=== PATIENT | female | born 1945 | race Caucasian/White ===

== ENCOUNTER → 2017-09-16 | Day surgery (SDC) | payer MEDICARE ==
[2017-09-15 08:00] LABS: BASOPHILS # (AUTO) 0.1 (0.0-0.1); BASOPHILS % 1.1 % (0.0-1.0); EOSINOPHILS # (AUTO) 0.3 (0.0-0.4); HEMATOCRIT 41.8 % (34.2-44.1); HEMOGLOBIN 13.8 g/dL (12.0-16.0); LYMPHOCYTES # (AUTO) 2.6 (1.0-3.2); LYMPHOCYTES % 41.4 % (18.0-39.1); MEAN CORPUSCULAR HEMOGLOBIN 30.9 pg (28-32); MEAN CORPUSCULAR VOLUME 93.5 fL (81-99); MONOCYTES # (AUTO) 0.7 (0.2-0.8); MONOCYTES % 11.1 % (4.4-11.3); NEUTROPHILS # (AUTO) 2.6 (2.1-6.9); NEUTROPHILS % 42.1 % (38.7-80.0); PLATELET COUNT 227 x10e3/uL (140-360); RED BLOOD COUNT 4.47 x10e6/uL (3.6-5.1); RED CELL DISTRIBUTION WIDTH 13.7 % (11.7-14.4)
[2017-09-15 08:21] LABS: ANION GAP 10.4 mmol/L (8-16); BLOOD UREA NITROGEN 16 mg/dL (7-26); BUN/CREATININE RATIO 18 (6-25); CALCIUM 9.1 mg/dL (8.4-10.2); CARBON DIOXIDE 26 mmol/L (22-29); CHLORIDE 109 mmol/L (98-107); CREATININE, SERUM 0.88 mg/dL (0.57-1.11); EST GLOMERULAR FILTRATION RATE > 60 ML/MIN (60-); GLUCOSE 110 mg/dL (74-118); POTASSIUM 4.4 mmol/L (3.5-5.1); SODIUM 141 mmol/L (136-145)
--- NOTE | 2017-09-15 08:33 | Diagnostic Imaging Report ---
PROCEDURE:CHEST 2 VIEWS TECHNIQUE:PA and lateral chest INDICATION:Preoperative evaluation for colonoscopy/EGD. COMPARISON:Patients [facility], , CHEST 2 VIEWS, 06/07/2015, 8:23. FINDINGS: Mild hyperinflation. Lungs otherwise clear and symmetrically inflated. No pleural effusions. Normal heart size and mediastinal contour. Intact skeleton with mild degenerative disc disease at the thoracolumbar spine. Cholecystectomy clips. CONCLUSION: 1. No acute abnormality or interval change from May 2015. 2. Mild hyperinflation may reflect air trapping from COPD or large inspiration effort. Dictated by: Jose Lynn M.D. on 09/15/2017 at 8:40 Electronically approved by: Jose Lynn M.D. on 09/15/2017 at 8:40
[~2017-09-16] MED LIST: ADVIL100 M2 PO; ADVIL200 MG PO; ALEVE220 M1 PO; COZAAR25 MG PO; FENTANYL CITRATE/PF 100MCG/2 ML INJ ONE; GABAPENTIN PO; KETOROLAC TROME10 MG PO; MIDAZOLAM HCL 2 MG/2 ML VIAL ONE; NAPROXEN250 MG PO; NEXIUM PO; NEXIUM40 MG PO; PREVACID15 MG PO; PROPOFOL IV EMULSION 10 MG/ML 20 ML VIAL ONE; RANITIDINE PO; TYLENOL PO
== END | disposition home or self-care (01) ==
LOC: OR 09:32
PROVIDERS: ATTEND Surgery
DX: K29.70 Gastritis, unspecified, without bleeding (principal); K29.80 Duodenitis without bleeding; K57.30 Diverticulosis of large intestine without perforation or abscess without bleeding; K25.9 Gastric ulcer, unspecified as acute or chronic, without hemorrhage or perforation; K44.9 Diaphragmatic hernia without obstruction or gangrene; K21.9 Gastro-esophageal reflux disease without esophagitis; I10 Essential (primary) hypertension; E78.5 Hyperlipidemia, unspecified; M19.90 Unspecified osteoarthritis, unspecified site; G57.90 Unspecified mononeuropathy of unspecified lower limb; Z01.810 Encounter for preprocedural cardiovascular examination; Z01.818 Encounter for other preprocedural examination
CPT/HCPCS: 36415 ×2; 43235; 45378; 71020; 80048; 82948; 85025; 93005; J2250

== ENCOUNTER → 2020-03-20 | Outpatient (CLI) | payer MEDICARE ==
[~2020-03-20] MED LIST changes: -FENTANYL CITRATE/PF 100MCG/2 ML INJ ONE; -MIDAZOLAM HCL 2 MG/2 ML VIAL ONE; -PROPOFOL IV EMULSION 10 MG/ML 20 ML VIAL ONE
== END ==
LOC: MAMMO 10:48
PROVIDERS: ATTEND Surgery
DX: Z12.31 Encounter for screening mammogram for malignant neoplasm of breast (principal)
CPT/HCPCS: 77067

== ENCOUNTER → 2020-03-30 | Day surgery (SDC) | payer MEDICARE, OTHER ==
[2020-03-27 15:36] LABS: BASOPHILS # (AUTO) 0.1 (0.0-0.1); EOSINOPHILS # (AUTO) 0.3 (0.0-0.4); EOSINOPHILS % 3.9 % (0.0-6.0); HEMATOCRIT 44.5 % (34.2-44.1); HEMOGLOBIN 14.1 g/dL (12.0-16.0); LYMPHOCYTES # (AUTO) 3.4 (1.0-3.2); LYMPHOCYTES % 38.3 % (18.0-39.1); MEAN CORPUSCULAR HEMOGLOBIN 28.8 pg (28-32); MEAN CORPUSCULAR HGB CONC 31.7 g/dL (31-35); MONOCYTES # (AUTO) 0.9 (0.2-0.8); MONOCYTES % 9.7 % (4.4-11.3); NEUTROPHILS # (AUTO) 4.1 (2.1-6.9); NEUTROPHILS % 46.9 % (38.7-80.0); PLATELET COUNT 244 x10e3/uL (140-360); RED BLOOD COUNT 4.89 x10e6/uL (3.6-5.1); RED CELL DISTRIBUTION WIDTH 14.5 % (11.7-14.4)
--- NOTE | 2020-03-27 15:48 | Diagnostic Imaging Report ---
EXAMINATION: CHEST 2 VIEWS INDICATION: Pre-operative COMPARISON: None FINDINGS: LINES/TUBES:None LUNGS:The lungs are well-inflated. No focal consolidation or pulmonary edema. PLEURA:No pleural effusion or pneumothorax. MEDIASTINUM:The cardiomediastinal silhouette appears normal in size and shape. BONES/SOFT TISSUES:No acute osseous injury. ABDOMEN:No free air under the diaphragm. IMPRESSION: No focal pneumonia or pulmonary edema. Signed by: Sheila Forde MD on 03/27/2020 3:44 PM
[2020-03-27 15:55] LABS: ALBUMIN 3.7 g/dL (3.5-5.0); ANION GAP 12.4 mmol/L (8-16); CALCIUM 9.3 mg/dL (8.4-10.2); CREATININE, SERUM 1.08 mg/dL (0.57-1.11); POTASSIUM 4.4 mmol/L (3.5-5.1)
[~2020-03-30] MED LIST changes: +IBUPROFEN200 MG PO; +LIDOCAINE HCL 2% LOCAL INJ 5 ML SDV VIAL INJ ONE; +PROPOFOL IV EMULSION 10 MG/ML 20 ML VIAL ONE
[2020-03-30 10:30] VITALS: BP 160/80
== END | disposition home or self-care (01) ==
LOC: OR 06:23
PROVIDERS: ATTEND Surgery
DX: K21.9 Gastro-esophageal reflux disease without esophagitis (principal); K29.50 Unspecified chronic gastritis without bleeding; K44.9 Diaphragmatic hernia without obstruction or gangrene; M19.90 Unspecified osteoarthritis, unspecified site; F41.9 Anxiety disorder, unspecified; Z88.6 Allergy status to analgesic agent; Z88.8 Allergy status to other drugs, medicaments and biological substances; Z01.810 Encounter for preprocedural cardiovascular examination; Z01.812 Encounter for preprocedural laboratory examination; Z01.818 Encounter for other preprocedural examination; Z11.59 Encounter for screening for other viral diseases
CPT/HCPCS: 36415; 43239; 71046; 80053; 85025; 87635; 88305; 88312; 88342; 93005; J2001; J2704

== ENCOUNTER 2020-09-03 07:17 | Inpatient (IN) | payer MEDICARE ==
[2020-08-30 17:11] LABS: BASOPHILS # (AUTO) 0.1 (0.0-0.1); BASOPHILS % 1.2 % (0.0-1.0); EOSINOPHILS # (AUTO) 0.2 (0.0-0.4); EOSINOPHILS % 2.5 % (0.0-6.0); HEMATOCRIT 45.5 % (34.2-44.1); HEMOGLOBIN 14.5 g/dL (12.0-16.0); LYMPHOCYTES # (AUTO) 2.6 (1.0-3.2); LYMPHOCYTES % 32.3 % (18.0-39.1); MEAN CORPUSCULAR HEMOGLOBIN 29.5 pg (28-32); MEAN CORPUSCULAR HGB CONC 31.9 g/dL (31-35); MEAN CORPUSCULAR VOLUME 92.5 fL (81-99); MONOCYTES # (AUTO) 0.9 (0.2-0.8); MONOCYTES % 10.9 % (4.4-11.3); NEUTROPHILS # (AUTO) 4.3 (2.1-6.9); NEUTROPHILS % 52.9 % (38.7-80.0); PLATELET COUNT 245 x10e3/uL (140-360); RED BLOOD COUNT 4.92 x10e6/uL (3.6-5.1); RED CELL DISTRIBUTION WIDTH 14.1 % (11.7-14.4)
[2020-08-30 17:31] LABS: ALBUMIN 3.8 g/dL (3.5-5.0); ANION GAP 13.2 mmol/L (8-16); CALCIUM 9.2 mg/dL (8.4-10.2); CREATININE, SERUM 1.03 mg/dL (0.57-1.11); POTASSIUM 4.2 mmol/L (3.5-5.1)
--- NOTE | 2020-08-30 18:00 | Diagnostic Imaging Report ---
EXAMINATION: CHEST 2 VIEWS INDICATION: Preoperative evaluation of the lungs. COMPARISON: None FINDINGS: TUBES and LINES: None. LUNGS: Normal lung volumes. Lungs are clear. There is bibasilar atelectasis. No consolidations. PLEURA: No pleural effusion or pneumothorax. HEART AND MEDIASTINUM: The cardiomediastinal silhouette is unremarkable. BONES AND SOFT TISSUES: No acute osseous lesion. Soft tissues are unremarkable. UPPER ABDOMEN: No free air under the diaphragm. IMPRESSION: No acute thoracic radiographic abnormality. Signed by: Sara Rowley MD on 08/30/2020 5:57 PM
[~2020-09-03] VITALS: Ht 172.7 cm; Wt 113.8 kg
[~2020-09-03 07:17] MED LIST changes: +ELDERBERRY PO; -LIDOCAINE HCL 2% LOCAL INJ 5 ML SDV VIAL INJ ONE; +PANTOPRAZOLE SO40 MG PO; -PROPOFOL IV EMULSION 10 MG/ML 20 ML VIAL ONE
[2020-09-03] MEDS ORDERED: BUPIVACAINE 7.5MG/ML /DEXTROSE 82.5MG/ML 2 ML AMP INJ ONE (10:37)
[2020-09-03] MEDS ORDERED: SEVOFLURANE INHAL SOLN 250 ML PEN BTL ONE (12:35)
[2020-09-03] MEDS ORDERED: CEFAZOLIN SOD 1 GM VIAL ONE (12:35)
[2020-09-03] MEDS ORDERED: KETOROLAC TROMETHAMINE 30 MG/ML VIAL ONE ×2 (12:35→14:50)
[2020-09-03] MEDS ORDERED: PROPOFOL IV EMULSION 10 MG/ML 20 ML VIAL ONE (12:35)
[2020-09-03] MEDS ORDERED: ONDANSETRON HCL INJ 2MG/ML 2ML 2 MG/ML VIAL ONE ×2 (12:35→15:09)
[2020-09-03] MEDS ORDERED: ROCURONIUM BROMIDE 10 MG/ML 5ML VIAL IV ONE (12:35)
[2020-09-03] MEDS ORDERED: DEXAMETHASONE SOD PHOS INJ 4 MG/ML VIAL ONE (12:35)
[2020-09-03] MEDS ORDERED: SUCCINYLCHOLINE CHLORIDE 20 MG/ML 10ML VIAL ONE (12:35)
[2020-09-03] MEDS ORDERED: LIDOCAINE HCL 2% LOCAL INJ 5 ML SDV VIAL INJ ONE (12:35)
[2020-09-03] MEDS ORDERED: ACETAMINOPHEN 1000 MG/100 ML IV PRN (13:15)
[2020-09-03] MEDS ORDERED: MIDAZOLAM HCL 2 MG/2 ML VIAL ONE (13:31)
[2020-09-03] MEDS ORDERED: BUPIVACAINE LIPOSOME/PF 266 MG/20 ML IJ ONE (13:33)
[2020-09-03] MEDS ORDERED: BUPIVACAINE 0.25% 30ML SDV ONE (13:33)
[2020-09-03] MEDS ORDERED: ACETAMINOPHEN 1000 MG/100 ML 100 ML IV ONE (13:37)
[2020-09-03] MEDS: SODIUM CHLORIDE 0.9% 250ML IRRIG IR SCH ×3 (14:12→22:00)
--- OUTSIDE RECORDS SUMMARY | 2020-09-03 14:15 | XMS REPORT | Continuity of Care Document ---
Author Author [facility] t Organization [facility] Address [address] [place] [address] Phone Unavailable Care Team Providers Care Auto Travel Counselor Name Role Phone Asael SMILEY Attphys Unavailable Payers Payer Name Policy Type Policy Number Effective Date Expiration Date S ource Problems This patient has no known problems. Allergies, Adverse Reactions, Alerts Allergy Name Allergy Type Status Severity Reaction(s) Onset Date Inacti ve Date Treating Clinician Comments Source codeine DA Active GA 2018-05-17 00:00:00 [facility] prochlorperazine edisylate DA Active 2017-01-03 00:00:0 0 [facility] prochlorperazine maleate DA Active SV 2017-01-03 00:00:00 [facility] meperidine HCl DA Active SV 2017-01-03 00:00:00 [facility] hydromorphone HCl DA Active SV 2017-01-03 00:00:00 [facility] propoxyphene napsylate DA Active SV 2017-01-03 00:00:00 [facility] Opioids - Morphine Analogues DA Active U 2017-01-03 00:00 :00 [facility] hydrocodone DA Active SV 2017-01-03 00:00:00 [facility] Medications This patient has no known medications. Procedures This patient has no known procedures. Results Test Description Test Time Test Comments Results Result Comments Source CHEST 2 VIEWS 2020-08-30 17:54:[address] [facility] 1945 Sex: F [facility] [address] [address] Patient Name: BRADFORD MANE MR #: [id number] : 1945 Age/Sex: 75/F Req #: [id number] Adm Physician: Ordered by: DENNY SMILEY MD Report #: [id number] Location: OR Room/Bed: Procedure: [id number] DX/CHEST 2 VIEWS Exam Date: 08/30/20 Exam Time: 1720 REPORT STATUS: Signed EXAMINATION: CHEST 2 VIEWS INDICATION: Preoperative evaluation of the lungs. COMPARISON: None FINDINGS: TUBES and LINES: None. LUNGS: Normal lung volumes. Lungs are clear. There is bibasilar atelectasis. No consolidations. PLEURA: No pleural effusion or pneumothorax. HEART AND MEDIASTINUM: The cardiomediastinal silhouette is unremarkable. BONES AND SOFT TISSUES: No acute osseous lesion. Soft tissues are unremarkable. UPPER ABDOMEN: No free air under the diaphragm. IMPRESSION: No acute thoracic radiographic abnormality. Signed by: Tulio Caal MD on 08/30/2020 5:57 PM Dictated By: TULIO CAAL MD 56 Transcribed By: GER on 08/30/201756 COPY TO: DENNY SMILEY MD - XR UGI DBL CONTRAST 2020-04-20 08:52:00 FAX: Denny Shell [phone] [place]: St: REG -- Name: BRADFORD MANE [facility] : 1945 Age/S: 74/F [address] [facility] Unit #: [id number] Loc: [place] [address] Phys: Denny Smiley MD Acct: [id number] Dis Date: Status: REG CLI PHONE #: [phone] Exam Date: 04/20/2020 0844 FAX #: [phone] Reason: ABD PAIN EXAMS: CPT CODE: [id number] XR UGI DBL CONTRAST 15714 EXAMINATION: - XR UGI DBL CONTRAST. HISTORY: ABD PAIN. COMPARISON: None. TECHNIQUE: Upper GI examination was performed w ith the oral administration of barium. Fluoroscopy time: 2.8 minutes Dose: 148 mGy FINDINGS: Views of the esophagus demonstrated no evidence of obstruction, perforation, or stricture. Contrast flowed freely past the gastroesophageal junction. Large hiatal hernia was visualized. There is delayed passage of oral contrast out of the herniated portion of the stomach. No ulcers or strictures are seen in the stomach. There is delayed passage of contrast from the gastric lumen into the small bowel. When the patient was placed in a supine position a small amount of contrast reflux was seen. Normal esophageal motility was seen. IMPRESSION: Large hiatal hernia with small amount of gastroesophageal reflux. Slightly delayed passage of oral contrast from the gastric lumen into the small bowel. Location: [facility] at 0852 Reported and signed by: Keon Ochoa MD CC: Denny Smiley MD Technologist: MARK AVENDANO RT(R) Trnscrd Date/Time/By: 04/20/2020 (0852) : By: [email or web address] Orig Print D/T: S: (0856) PAGE 1 Signed Report CHEST 2 VIEWS 2020-03-27 15:44:[address] [address] Patient Name: BRADFORD MANE MR #: [id number] : 1945 Age/Sex: 74/F Req #: [id number] Adm Physician: Ordered by: DENNY SMILEY MD Report #: [id number] Location: OR Room/Bed: Procedure: [id number] DX/CHEST 2 VIEWS Exam Date: 03/27/20 Exam Time: 1500 REPORT STATUS: Signed EXAMINATION: CHEST 2 VIEWS INDICATION: Pre-operative COMPARISON: None FINDINGS: LINES/TUBES:None LUNGS:The lungs are well-inflated. No focal consolidation or pulmonary edema. PLEURA:No pleural effusion or pneumothorax. MEDIAS TINUM:The cardiomediastinal silhouette appears normal in size and shape. BONES/SOFT TISSUES:No acute osseous injury. ABDOMEN:No free air under the diaphragm. IMPRESSION: No focal pneumonia or pulmonary edema. Signed by: Shayna Linda MD on 03/27/2020 3:44 PM Dictated By: SHAYNA LINDA MD 1545 Transcribed By: GER on 03/27/20 0013 COPY TO: DENNY SMILEY MD MAMMOGRAPHY DIGITAL SCR BILAT 2020-03-20 13:35:[address], [place], [place] [address] Patient Name: BRADFORD MANE MR #: [id number] : 1945 Age/Sex: 74/F Req #: [id number] Adm Physician: Ordered by: DENNY SMILEY MD Report #: [id number] Location: MAMMO Room/Bed: Procedure: [id number] MG/MAMMOGRAPHY DIGITAL SCR BILAT Exam Date: 03/20/20 Exam Time: 1136 REPORT STATUS: Signed #[id number] - [id number] #BILATERAL DIGITAL SCREENING MAMMOGRAM WITH CAD: 03/20/2020 CLINICAL: Routine screening. No prior exams were available for comparison. Current study contains 4 films. The tissue of both breasts is predominantly fatty. Current study was also evaluated with a Computer Aided Detection (CAD) system. Benign appearing calcifications are noted bilaterally. There are benign vascular calcifications in both breasts. No significant masses, calcifications, or other findings are seen in either breast. IMPRESSION: BENIGN There is no mammographic evidence of malignancy. A 1 year screening mammogram is recommended. The patient will be notified by letter of the results. VIRGEN blackmon/yuri:04/03/2020 11:06:21 Import Dispatcher: Marlena HATFIELD)(M), [facility] letter sent: Normal Exam Mammogram BI-RADS: 2 Benign Dictated By: VIRGEN VASQUEZ MD 05 Transcribed By: YURI on 04/03/201105 COPY TO: DENNY SMILEY MD COMPREHENSIVE METABOLIC PANEL 2019-10-21 15:17:00 Test Item SODIUM (test code = NA) 144 mmol/L 136-145 N POTASSIUM (test code = K) 4.1 mmol/L 3.5-5.1 N CHLORIDE (test code = CL) 110.0 mmol/L 98-107 H CARBON DIOXIDE (test code = CO2) 26.0 mmol/L 21-32 N ANION GAP (test code = GAP) 12.1 10-20 N GLUCOSE (test code = GLU) 95 mg/dL 74-106 N BLOOD UREA NITROGEN (test code = BUN) 21 mg/dL 7-18 H GLOMERULAR FILTRATION RATE (test code = GFR) > 60 mL/min >=60 Estimated GFR by using Modified MDRD formula.Chronic kidney disease is defined as either kidney damageor GFR <60 mL/min/1.73 m2 for >3 months. CREATININE (test code = CREAT) 0.90 mg/dL 0.55-1.02 N Note change in reference range due to change in reagent. BUN/CREATININE RATIO (test code = BUN/CREA) 23.3 10-20 H TOTAL PROTEIN (test code = PROT) 7.2 gram/dL 6.4-8.2 N ALBUMIN (test code = ALB) 3.5 g/dL 3.4-5.0 N GLOBULIN (test code = GLOB) 3.7 gram/dL 2.7-4.2 N ALBUMIN/GLOBULIN RATIO (test code = A/G) 1.0 0.75-1.50 N CALCIUM (test code = CA) 8.9 mg/dL 8.5-10.1 N BILIRUBIN TOTAL (test code = BILT) 0.50 mg/dL 0.0-1.0 N SGOT/AST (test code = AST) 19 IUnit/L 15-37 N SGPT/ALT (test code = ALT) 29 IUnit/L 12-78 N ALKALINE PHOSPHATASE TOTAL (test code = ALKP) 76 IUnit/L 45-117 N Note change in reference range due to change in reagent. LIPID PROFILE (CORONARY RISK)2019-10-21 15:17:00* Test Item Value Reference Range Interpretation Comments TRIGLYCERIDES (test code = TRIG) 93 mg/dL 20-150 N CHOLESTEROL (test code = CHOL) 200 mg/dL 0-200 N CHOLESTEROL/HDL RATIO (test code = CHOLHDL) 3.0 RATIO 0-4.9 N RISK ASSOCIATED WITH CHOL/HDL RATIOS: Risk Male Female1/2 AVERAGE 3.43 3.27AVERAGE 4.97 4.442X AVERAGE 9.55 7.053X AVERAGE 23.39 11.04 REFERENCE VALUE IS RELATED TO RISK LEVELS ASRECOMMENDED BY THE BLANCO. HEART, LUNG, AND BLOOD INST. HDL CHOLESTEROL (test code = HDL) 54 mg/dL 40-60 N LIPOPROTEIN LDL (test code = LDL) 141 mg/dL 100-129 H RN PERSONNEL, CONTACT PHYSICIAN IMMEDIATELY IF THIS IS A STROKE, AMI OR CAROTID STENOSIS PATIENT WHEN THE LDL >100 (1ST OCCURENCE, THIS ADMISSION) Reference Interval: mg/dL mmol/L Optimal <100 <2.6Near/above optimal 100-129 2.6- 3.3Borderline High 130-159 3.4-4.1High 160-189 4.1-4.9Very High >=190 >=4.9========= This LDL result is a direct measurement.========= T4 [id number] 15:17:00* Test Item Value Reference Range Interpretation Comments T4 FREE (test code = T4F) 0.94 ng/dL 0.76-1.46 N THYROID STIMULATING [id number] 15:17:00* Test Item Value Reference Range Interpretation Comments THYROID STIMULATING HORMONE (test code = TSH) 2.270 uIU/mL 0.36-3.7 4 N TSH REFERENCE RANGES: EUTHYROID: 0.35 - 4.3 mIU/mL HYPO : > 5.5 mIU/mL HYPER : < 0.35 mIU/mL [id number] 13:17:00* Test Item Value Reference Range Interpretation Comments GLYCOSYLATED HEMOGLOBIN (HA1C) (test code = GLYHGB) 5.8 % HbA1 SUGGESTED DIAGNOSIS: HbA1C (%) Diabetic >6.4Prediabetes 5.7 - 6.4Normal <5.7 ESTIMATED AVERAGE GLUCOSE (test code = EAG) 120 MG/DL CBC W/AUTO [id number] 13:08:00* Test Item Value Reference Range Interpretation Comments WHITE BLOOD CELL (test code = WBC) 8.3 K/mm3 4.5-12.5 N RED BLOOD CELL (test code = RBC) 4.46 mill/mm3 3.7-5.2 N HEMOGLOBIN (test code = HGB) 13.4 gram/dL 11.5-15.5 N HEMATOCRIT (test code = HCT) 40.6 % 36.0-46.0 N MEAN CELL VOLUME (test code = MCV) 91.0 fL 80-98 N MEAN CELL HGB (test code = MCH) 30.0 picogram 27.0-33.0 N MEAN CELL HGB CONCETRATION (test code = MCHC) 33.0 gram/dL 33.0-36. 0 N RED CELL DISTRIBUTION WIDTH (test code = RDW) 14.4 % 11.6-16. 2 N RED CELL DISTRIBUTION WIDTH SD (test code = RDW-SD) 48.0 fL 37 .0-51.0 N PLATELET COUNT (test code = PLT) 232 K/mm3 150-450 N MEAN PLATELET VOLUME (test code = MPV) 12.2 fL 6.7-11.0 H NEUTROPHIL % (test code = NT%) 52.3 % 39.0-69.0 N IMMATURE GRANULOCYTE % (test code = IG%) 0.2 % 0.0-5.0 N LYMPHOCYTE % (test code = LY%) 31.1 % 25.0-55.0 N MONOCYTE % (test code = MO%) 11.9 % 0.0-10.0 H EOSINOPHIL % (test code = EO%) 3.4 % 0.0-5.0 N BASOPHIL % (test code = BA%) 1.1 % 0.0-1.0 H NUCLEATED RBC % (test code = NRBC%) 0.0 % 0-0 N NEUTROPHIL # (test code = NT#) 4.35 K/mm3 1.8-7.7 N IMMATURE GRANULOCYTE # (test code = IG#) 0.02 x10 3/uL 0-0.03 N LYMPHOCYTE # (test code = LY#) 2.59 K/mm3 1.0-5.0 N MONOCYTE # (test code = MO#) 0.99 K/mm3 0-0.8 H EOSINOPHIL # (test code = EO#) 0.28 K/mm3 0.0-0.5 N BASOPHIL # (test code = BA#) 0.09 K/mm3 0.0-0.2 N NUCLEATED RBC # (test code = NRBC#) 0.00 K/mm3 0.0-0.1 N CBC W/AUTO [id number] 13:03:00* Test Item Value Reference Range Interpretation Comments WHITE BLOOD CELL (test code = WBC) K/mm3 4.5-12.5 RED BLOOD CELL (test code = RBC) mill/mm3 3.7-5.2 HEMOGLOBIN (test code = HGB) 13.4 gram/dL 11.5-15.5 N HEMATOCRIT (test code = HCT) 40.6 % 36.0-46.0 N MEAN CELL VOLUME (test code = MCV) fL 80-98 MEAN CELL HGB (test code = MCH) picogram 27.0-33.0 MEAN CELL HGB CONCETRATION (test code = MCHC) gram/dL 33.0-36. 0 RED CELL DISTRIBUTION WIDTH (test code = RDW) % 11.6-16. 2 RED CELL DISTRIBUTION WIDTH SD (test code = RDW-SD) fL 37 .0-51.0 PLATELET COUNT (test code = PLT) K/mm3 150-450 MEAN PLATELET VOLUME (test code = MPV) fL 6.7-11.0 NEUTROPHIL % (test code = NT%) % 39.0-69.0 IMMATURE GRANULOCYTE % (test code = IG%) % 0.0-5.0 LYMPHOCYTE % (test code = LY%) % 25.0-55.0 MONOCYTE % (test code = MO%) % 0.0-10.0 EOSINOPHIL % (test code = EO%) % 0.0-5.0 BASOPHIL % (test code = BA%) % 0.0-1.0 NEUTROPHIL # (test code = NT#) K/mm3 1.8-7.7 LYMPHOCYTE # (test code = LY#) K/mm3 1.0-5.0 MONOCYTE # (test code = MO#) K/mm3 0-0.8 EOSINOPHIL # (test code = EO#) K/mm3 0.0-0.5 BASOPHIL # (test code = BA#) K/mm3 0.0-0.2 - XR L-SPINE 2/3 [id number] 10:43:00 Name: BRADFORD MANE [facility] : 1945 Age/S:73 /F [address] [facility] Unit#:[id number] Loc: [place] [address] Phys: Khang Brian MD Dis Date: PHONE #: [phone] Status: REG ER FAX #: [phone] Exam Date: 05/20/2019 Reason: fall, pain EXAMS: CPT CODE: [id number] XR L-SPINE 2/3 VIEWS 44843 HISTORY: Fall and pain. COMPARISON: None available. 3 VIEWS OF THE RIGHT KNEE: Total knee replacement in good position. No loosening or fracture. No joint fluid. Bone mineralization and soft tissues are normal. IMPRESSION: Total knee replacement in good position without loosening or fracture. 3 VIEWS OF THE RIGHT HIP: No acute fracture or dislocation. Hip joint is preserved. No AVN. Trabecular pattern and mineralization are normal. Acetabulum is unremarkable. SI joints unremarkable symphysis is well opposed. IMPRESSION: No acute fracture or dislocation. No AVN. Hip joint is relatively preserved. Lumbar spine series, 3 views: Lumbarization of the S1 vertebral body. Dextroscoliosis. Narrowed disc space at L5-S1 level. Vertebral body heights are maintained. Anterior osteophytes. Vascular calcifications. IMPRESSION: No acute fracture or dislocation. Vertebral body heights are maintained. at 1047 Reported and signed by: Winston Arevalo M.D. CC: Vinod James MD; Khang Brain MD Technologist: DEE STARR, RT(R),CT Trnscrpt Data: 05/20/2019 (8108) t.SDR.TH4 Orig Print D/T: S: 05/20/2019 (1556) PAGE 1 Signed Report - XR HIP W/PEL UNI 2+V [id number] 10:43:00 Name: BRADFORD MANE Imaging [facility] : 1945 Age/S:73 /F [address] [facility] Unit#:[id number] Loc: [place] [address] Phys: Khang Brian MD Dis Date: PHONE #: [phone] Status: REG ER FAX #: [phone] Exam Date: 05/20/2019 Reason: fall, pain EXAMS: CPT CODE: [id number] XR HIP W/PEL UNI 2+[place] [address] HISTORY: Fall and pain. COMPARISON: None available. 3 VIEWS OF THE RIGHT KNEE: Total knee replacement in good position. No loosening or fracture. No joint fluid. Bone mineralization and soft tissues are normal. IMPRESSION: Total knee replacement in good position without loosening or fracture. 3 VIEWS OF THE RIGHT HIP: No acute fracture or dislocation. Hip joint is preserved. No AVN. Trabecular pattern and mineralization are normal. Acetabulum is unremarkable. SI joints unremarkable symphysis is well opposed. IMPRESSION: No acute fracture or dislocation. No AVN. Hip joint is relatively preserved. Lumbar spine series, 3 views: Lumbarization of the S1 vertebral body. Dextroscoliosis. Narrowed disc space at L5-S1 level. Vertebral body heights are maintained. Anterior osteophytes. Vascular calcifications. IMPRES GIOVANNY: No acute fracture or dislocation. Vertebral body heights are maintained. at 1043 Reported and signed by: Winston woods M.D. CC: Vinod James MD; Khnag Brian MD Technol ogist: DEE STARR, RT(R),CT [facility] Data: (1043) Samantha.TH4 Orig Print D/T: S: 05/20/2019 (2220) PAGE 1 Signed Report - XR KNEE 3 V [id number] 10:43:00 Name: BRADFORD MANE [facility] : 1945 Age/S:73 /F [address] [facility] Unit#:[id number] Loc: [place] [address] Phys: Khang Brian MD Dis Date: PHONE #: [phone] Status: REG ER FAX #: [phone] Exam Date: 05/20/2019 Reason: fall, pain EXAMS: CPT CODE: [id number] XR KNEE [address] [place] [id number] HISTORY: Fall and pain. COMPARISON: None available. 3 VIEWS OF THE RIGHT KNEE: Total knee replacement in good position. No loosening or fracture. No joint fluid. Bone mineralization and soft tissues are normal. IMPRESSION: Total knee replacement in good position without loosening or fracture. 3 VIEWS OF THE RIGHT HIP: No acute fracture or dislocation. Hip joint is preserved. No AVN. Trabecular pattern and mineralization are normal. Acetabulum is unremarkable. SI joints unremarkable symphysis is well opposed. IMPRESSION: No acute fracture or dislocation. No AVN. Hip joint is relatively preserved. Lumbar spine series, 3 views: Lumbarization of the S1 vertebral body. Dextroscoliosis. Narrowed disc space at L5-S1 level. Vertebral body heights are maintained. Anterior osteophytes. Vascular calcifications. IMPRES GIOVANNY: No acute fracture or dislocation. Vertebral body heights are maintained. at 1043 Reported and signed by: Winston woods M.D. CC: Vinod James MD; Khang Brian MD Technol ogist: DEE STARR, RT(R),CT Trnscrpt Data: (9991) t.SDR.TH4 Orig Print D/T: S: 05/20/2019 (8654) PAGE 1 Signed Report COMPREHENSIVE METABOLIC [id number] 09:57:00* Test Item Value Reference Range Interpretation Comments SODIUM (test code = NA) 141 mmol/L 136-145 N POTASSIUM (test code = K) 3.9 mmol/L 3.5-5.1 N CHLORIDE (test code = CL) 110.0 mmol/L 98-107 H CARBON DIOXIDE (test code = CO2) 23.0 mmol/L 21-32 N ANION GAP (test code = GAP) 11.9 10-20 N GLUCOSE (test code = GLU) 105 mg/dL 74-106 N BLOOD UREA NITROGEN (test code = BUN) 25 mg/dL 7-18 H GLOMERULAR FILTRATION RATE (test code = GFR) 54 mL/min >=60 Estimated GFR by using Modified MDRD formula.Chronic kidney disease is defined as either kidney damageor GFR <60 mL/min/1.73 m2 for >3 months. CREATININE (test code = CREAT) 1.00 mg/dL 0.55-1.02 N Note change in reference range due to change in reagent. BUN/CREATININE RATIO (test code = BUN/CREA) 25.0 10-20 H TOTAL PROTEIN (test code = PROT) 7.5 gram/dL 6.4-8.2 N ALBUMIN (test code = ALB) 3.6 g/dL 3.4-5.0 N GLOBULIN (test code = GLOB) 3.9 gram/dL 2.7-4.2 N ALBUMIN/GLOBULIN RATIO (test code = A/G) 0.9 0.75-1.50 N CALCIUM (test code = CA) 9.4 mg/dL 8.5-10.1 N BILIRUBIN TOTAL (test code = BILT) 0.50 mg/dL 0.0-1.0 N SGOT/AST (test code = AST) 24 IUnit/L 15-37 N SGPT/ALT (test code = ALT) 28 IUnit/L 12-78 N ALKALINE PHOSPHATASE TOTAL (test code = ALKP) 81 IUnit/L 45-117 N Note change in reference range due to change in reagent. LIPID PROFILE (CORONARY RISK)2019-01-17 09:57:00* Test Item Value Reference Range Interpretation Comments TRIGLYCERIDES (test code = TRIG) 101 mg/dL 20-150 N CHOLESTEROL (test code = CHOL) 187 mg/dL 0-200 N CHOLESTEROL/HDL RATIO (test code = CHOLHDL) 4.0 RATIO 0-4.9 N RISK ASSOCIATED WITH CHOL/HDL RATIOS: Risk Male Female1/2 AVERAGE 3.43 3.27AVERAGE 4.97 4.442X AVERAGE 9.55 7.053X AVERAGE 23.39 11.04 REFERENCE VALUE IS RELATED TO RISK LEVELS ASRECOMMENDED BY THE [facility]ANCO. HEART, LUNG, AND BLOOD INST. HDL CHOLESTEROL (test code = HDL) 46 mg/dL 40-60 N LIPOPROTEIN LDL (test code = LDL) 120 mg/dL 100-129 N RN PERSONNEL, CONTACT PHYSICIAN IMMEDIATELY IF THIS IS A STROKE, AMI OR CAROTID STENOSIS PATIENT WHEN THE LDL >100 (1ST OCCURENCE, THIS ADMISSION) Reference Interval: mg/dL mmol/L Optimal <100 <2.6Near/above optimal 100-129 2.6- 3.3Borderline High 130-159 3.4-4.1High 160-189 4.1-4.9Very High >=190 >=4.9========= This LDL result is a direct measurement.========= [id number] 09:57:00* Test Item Value Reference Range Interpretation Comments GLYCOSYLATED HEMOGLOBIN (HA1C) (test code = GLYHGB) 5.9 % HbA1 4. 8-6.0 N ESTIMATED AVERAGE GLUCOSE (test code = EAG) 123 MG/DL CHEST 2 VIEWS [facility] [address] [place] [address] Patient Name: BRADFORD MANE MR #: [id number] : 1945 Age/Sex: 72/F Req #: [id number] Adm Physician: Ordered by: DENNY SMILEY MD Report #: [id number] Location: OR Room/Bed: Procedure: [id number] DX/CHEST 2 VIEWS Exam Date : 09/15/17 Exam Time: 0814 REPORT STATUS: Nury d PROCEDURE: CHEST 2 VIEWS TECHNIQUE: PA and lateral chest INDICATION : Preoperative evaluation for colonoscopy/EGD. [facility], DX, CHEST 2 VIEWS, 06/07/2015, 8:23. FINDINGS: Mild hyperinf lation. Lungs otherwise clear and symmetrically inflated. No pleural effusion s. Normal heart size and mediastinal contour. Intact skeleton with mild degen erative disc disease at the thoracolumbar spine. Cholecystectomy clips. CONCLUSION: 1. No acute abnormality or interval change from May 2015. 2. Mild hyperinflation may reflect air trapping from COPD or large inspirat ion effort. Dictated by: Rosaline Lynn M.D. on 09/15/2017 a t 8:40 Electronically approved by: Rosaline Lynn M.D. on 7 at 8:40 Dictated By: ROSALINE LYNN MD Electronically Nury d By: ROSALINE LYNN MD on 09/15/17839 Transcribed By: NAILA on 09/15/17839 COPY TO: DENNY SMILEY MD
[2020-09-03] MEDS: SODIUM CHLORIDE 0.9% EPI PRN ×2 (14:25→21:46)
[2020-09-03] MEDS: BUPIVACAINE HCL 0.25% EPI PRN ×2 (14:25→21:46)
[2020-09-03] MEDS: KETOROLAC TROMETHAMINE 30 MG/ML VIAL IV PRN ×2 (14:44→20:44)
[2020-09-03] MEDS: ACETAMINOPHEN 1000 MG/100 ML IV PRN (14:44)
[2020-09-03] MEDS: PANTOPRAZOLE 40 MG 10ML VIAL IV SCH (14:57)
[2020-09-03] MEDS ORDERED: PROMETHAZINE HCL (IM) 25 MG/ML VIAL IM ONE (15:21)
[2020-09-03 15:22] VITALS: BP 156/77
--- NOTE | 2020-09-03 16:15 | Operative Report ---
DATE OF PROCEDURE: 09/03/2020 SURGEON: Mervin Smiley MD PREOPERATIVE DIAGNOSES: Recurrent hiatal hernia, gastroesophageal reflux disease, and delayed gastric emptying. POSTOPERATIVE DIAGNOSES: Recurrent hiatal hernia, gastroesophageal reflux disease, and delayed gastric emptying. OPERATIONS PERFORMED: Exploratory laparotomy, repair of recurrent hiatal hernia, redo Abdullahi fundoplication, and pyloroplasty. ASSISTANTS: 1. Dr. Evelio Smiley. 2. KAZ Reyes. ANESTHESIA: General. COMPLICATIONS: None. ESTIMATED BLOOD LOSS: 50 mL. DESCRIPTION OF PROCEDURE: With the patient lying in bed in the supine position under good general endotracheal anesthesia, the abdomen was prepped with Betadine solution and draped in the usual manner. A midline incision was made, it was carried down through the subcutaneous tissue down to the midline fascia. The midline fascia was opened. The peritoneum was opened and the abdomen was entered. Upon entering the abdominal cavity, some adhesions were encountered from the patient's previous surgeries to the anterior abdominal wall, which revealed omental adhesions, which were all slowly and carefully taken down. After this was done, examination revealed some adhesions from the left lobe of the liver to the subdiaphragmatic area from the patient's previous laparoscopic Abdullahi fundoplication. All of the adhesions to the liver were then slowly and carefully taken down, and then we had a good look at the hiatus. The hernia was then reduced back to the intra-abdominal cavity. All of the adhesions were taken down. The hernia sac was then opened and the esophagus was then freed up circumferentially and retracted with a Willi drain. The posterior adhesions to the diaphragm from the previous hiatal hernia repair were then slowly and carefully taken down and similarly the Abdullahi fundoplication that had been done before, which appeared to be fairly intact was then also taken down and the esophagogastric junction was then clearly dissected and identified. Once this was done and all of the fundus of the stomach was clearly freed up, we then went ahead and placed the bougie in place and the hiatal hernia was then closed with interrupted sutures of #1 Ethibond, closing the crura posterior to the esophagogastric junction; this gave us a satisfactory repair without any tension. Once after this was done, the Abdullahi fundoplication was then redone, bringing the fundus of the stomach in a retroesophageal fashion to create a 360-degree wrap and the Abdullahi fundoplication was then performed with three sutures of 2-0 Vicryl, bringing the fundus of the stomach on the one side to the lower esophagus to the fundus of the stomach on the other side, this gave us a satisfactory floppy Abdullahi fundoplication without any tension and perfect hemostasis was ascertained. After this was done, the duodenum was then mobilized and the pylorus was identified. The longitudinal incision was then made in the pylorus, opening up the pylorus roughly about an inch in each direction and then it was closed transversely to create a pyloroplasty. The internal layer was performed with 3-0 chromic, and gloves and instruments were changed and then the pyloroplasty was further reinforced with seromuscular sutures of 3-0 silk. This gave us a widely-open pylorus. The whole abdomen was then copiously irrigated. Perfect hemostasis was ascertained. The bougie had been removed and the NG tube was left in the appropriate position and the wound was then closed in layers. The peritoneum was closed with a running suture of #1 Vicryl. The midline fascia was closed with a running suture of #1 Vicryl. A block was then performed using Exparel and Marcaine, and the skin was closed with clips. A dressing was applied. The sponge, lap, and needle count were correct. The patient tolerated the procedure well and returned to the recovery room in stable condition. MD LEMUEL Pearce/SARINA /[id number]
[2020-09-03] MEDS ORDERED: LABETALOL HCL 20 ML ONE (16:16)
[2020-09-03] MEDS: SODIUM CHLORIDE 0.9% 1000ML 1,000 ML IV SCH (16:50)
--- NOTE | 2020-09-03 17:00 | NUR ---
patient received from PACU via stretcher. see admit assess. epidural in place for pain. vitals stable. patient very lethargic post surgery. family at BS. left nare NGT in place with bloody minimal bloody output. will monitor status closely.
[2020-09-03 17:04] VITALS: BP 151/81
[2020-09-03 17:13] VITALS: BP 151/81
[2020-09-03] MEDS: ONDANSETRON HCL INJ 2MG/ML 2ML 2 MG/ML VIAL IV PRN (17:35)
[2020-09-03] MEDS: CEFAZOLIN SOD 1 GM/NS 50ML 50 ML IV SCH (18:16)
[2020-09-03 20:04] VITALS: BP 153/66
[2020-09-03 21:00] VITALS: BP 153/66
[2020-09-03 23:54] VITALS: BP 132/61
[2020-09-04] VITALS (7 sets, daily range): BP systolic 98–135; BP diastolic 43–71
[2020-09-04] MEDS: ONDANSETRON HCL INJ 2MG/ML 2ML 2 MG/ML VIAL IV PRN (00:17)
[2020-09-04] MEDS ORDERED: ACETAMINOPHEN 1000 MG/100 ML 100 ML IV ONE (00:40)
[2020-09-04] MEDS: ACETAMINOPHEN 1000 MG/100 ML IV PRN ×4 (00:42→20:30)
[2020-09-04] MEDS: SODIUM CHLORIDE 0.9% 1000ML 1,000 ML IV SCH ×4 (01:44→23:00)
[2020-09-04] MEDS: CEFAZOLIN SOD 1 GM/NS 50ML 50 ML IV SCH (01:45)
[2020-09-04] MEDS: SODIUM CHLORIDE 0.9% 250ML IRRIG IR SCH ×6 (01:45→21:18)
[2020-09-04] MEDS: KETOROLAC TROMETHAMINE 30 MG/ML VIAL IV PRN ×3 (03:16→16:44)
[2020-09-04] MEDS: SODIUM CHLORIDE 0.9% EPI PRN ×4 (05:00→23:11)
[2020-09-04] MEDS: BUPIVACAINE HCL 0.25% EPI PRN ×4 (05:00→23:11)
[2020-09-04 05:07] LABS: BASOPHILS # (AUTO) 0.1 (0.0-0.1); BASOPHILS % 0.4 % (0.0-1.0); HEMATOCRIT 35.6 % (34.2-44.1); HEMOGLOBIN 11.8 g/dL (12.0-16.0); LYMPHOCYTES # (AUTO) 1.5 (1.0-3.2); LYMPHOCYTES % 12.6 % (18.0-39.1); MEAN CORPUSCULAR HEMOGLOBIN 29.7 pg (28-32); MEAN CORPUSCULAR HGB CONC 33.1 g/dL (31-35); MEAN CORPUSCULAR VOLUME 89.7 fL (81-99); MONOCYTES # (AUTO) 1.5 (0.2-0.8); MONOCYTES % 12.7 % (4.4-11.3); PLATELET COUNT 213 x10e3/uL (140-360); RED BLOOD COUNT 3.97 x10e6/uL (3.6-5.1); RED CELL DISTRIBUTION WIDTH 14.2 % (11.7-14.4)
[2020-09-04 05:29] LABS: CALCIUM 7.8 mg/dL (8.4-10.2); CREATININE, SERUM 1.05 mg/dL (0.57-1.11)
--- NOTE | 2020-09-04 09:00 | NUR ---
patient OOB x45 min to chair. got dizzy so assisted back to bed and patient napping now.
[2020-09-04] MEDS: PANTOPRAZOLE 40 MG 10ML VIAL IV SCH (16:44)
[2020-09-04] MEDS: CEFTRIAXONE SOD 1 GM/NS 50 ML 50 ML IV SCH (19:58)
[2020-09-05] VITALS (8 sets, daily range): BP systolic 111–158; BP diastolic 53–67
[2020-09-05] MEDS: KETOROLAC TROMETHAMINE 30 MG/ML VIAL IV PRN ×4 (01:31→23:55)
[2020-09-05] MEDS: SODIUM CHLORIDE 0.9% 250ML IRRIG IR SCH ×6 (02:00→21:51)
[2020-09-05] MEDS: SODIUM CHLORIDE 0.9% EPI PRN ×2 (05:23→12:21)
[2020-09-05] MEDS: BUPIVACAINE HCL 0.25% EPI PRN ×2 (05:23→12:21)
[2020-09-05] MEDS ORDERED: ACETAMINOPHEN 1000 MG/100 ML 100 ML IV ONE (05:25)
[2020-09-05] MEDS: ACETAMINOPHEN 1000 MG/100 ML IV PRN ×2 (05:30→20:26)
[2020-09-05] MEDS: SODIUM CHLORIDE 0.9% 1000ML 1,000 ML IV SCH ×3 (07:30→21:51)
[2020-09-05 09:29] LABS: BASOPHILS # (AUTO) 0.1 (0.0-0.1); BASOPHILS % 0.5 % (0.0-1.0); EOSINOPHILS # (AUTO) 0.2 (0.0-0.4); EOSINOPHILS % 0.9 % (0.0-6.0); HEMATOCRIT 37.2 % (34.2-44.1); HEMOGLOBIN 12.2 g/dL (12.0-16.0); LYMPHOCYTES # (AUTO) 1.4 (1.0-3.2); LYMPHOCYTES % 6.9 % (18.0-39.1); MEAN CORPUSCULAR HEMOGLOBIN 30.3 pg (28-32); MEAN CORPUSCULAR HGB CONC 32.8 g/dL (31-35); MEAN CORPUSCULAR VOLUME 92.5 fL (81-99); MONOCYTES # (AUTO) 1.6 (0.2-0.8); MONOCYTES % 8.1 % (4.4-11.3); NEUTROPHILS # (AUTO) 16.3 (2.1-6.9); NEUTROPHILS % 82.7 % (38.7-80.0); PLATELET COUNT 194 x10e3/uL (140-360); RED BLOOD COUNT 4.02 x10e6/uL (3.6-5.1); RED CELL DISTRIBUTION WIDTH 14.6 % (11.7-14.4)
[2020-09-05 09:54] LABS: BLOOD UREA NITROGEN 17 mg/dL (7-26); BUN/CREATININE RATIO 22 (6-25); CALCIUM 7.5 mg/dL (8.4-10.2); CARBON DIOXIDE 19 mmol/L (22-29); CHLORIDE 113 mmol/L (98-107); CREATININE, SERUM 0.79 mg/dL (0.57-1.11); EST GLOMERULAR FILTRATION RATE > 60 ML/MIN (60-); GLUCOSE 74 mg/dL (74-118); SODIUM 140 mmol/L (136-145)
[2020-09-05] MEDS: ONDANSETRON HCL INJ 2MG/ML 2ML 2 MG/ML VIAL IV PRN (10:15)
--- NOTE | 2020-09-05 10:15 | NUR ---
CO NAUSEA MEDICATED WITH PRN MEDS
--- NOTE | 2020-09-05 12:10 | NUR ---
PT CO OF INCREASED PRESSURE TO CHEST WITH NAUSEA, NOTIFIED DR. ANGEL ORDERS GIVEN AND CARRIED OUT, FOR EKG, CHEST XRAY AND STADOL 1MG X 1 DOSE, WILL CONTINUE TO MONITOR
[2020-09-05] MEDS ORDERED: BUTORPHANOL TARTRATE INJ 1 MG/ML VIAL IV ONE (12:15)
--- NOTE | 2020-09-05 13:09 | Diagnostic Imaging Report ---
Chest, 1 view, 09/05/2020. History: Shortness of breath. Comparison: 08/30/2020. Findings: The cardiomediastinal silhouette and pulmonary vasculature are within normal limits for a portable exam. There is no focal consolidation or pleural effusion. NG tube is present terminating below the left hemidiaphragm. There are no acute osseous or soft tissue abnormalities. Impression: No acute cardiopulmonary abnormality. Signed by: Milton Lee on 09/05/2020 1:05 PM
[2020-09-05] MEDS: PANTOPRAZOLE 40 MG 10ML VIAL IV SCH (15:19)
--- NOTE | 2020-09-05 18:59 | NUR ---
WALKING ROUNDS PERFORMED, RECEIVED PT SITTING IN RECLINER, PT IS AAOX3, RR EVEN AND NON-LABORED, ON ROOM AIR. NO S/SX OF DISTRESS NOTED. NGT TO (L) NARE CONNECTED TO LCS. MALAVE TO BEDSIDE BAG. DRESSING TO ANTERIOR ABD NOTED TO BE CDI. LEFT PT SITTING IN RECLINER, CALL LIGHT AND PHONE WITHIN REACH. FAMILY AT BEDSIDE.
--- NOTE | 2020-09-05 20:20 | NUR ---
ASSISTED PT FROM RECLINER BACK TO BED. SHORT SHUFFLING GAIT NOTED. LEFT PT LAYING FOWLERS IN BED, BED IN LOW LOCKED POSITION, SIDE RAILS UPX2, CALL LIGHT AND PHONE WITHIN REACH. FAMILY AT BEDSIDE.
[2020-09-05] MEDS: CEFTRIAXONE SOD 1 GM/NS 50 ML 50 ML IV SCH (20:46)
[2020-09-06] VITALS (7 sets, daily range): BP systolic 126–185; BP diastolic 54–89
[2020-09-06] MEDS: BUPIVACAINE HCL 0.25% EPI PRN (02:20)
[2020-09-06] MEDS: SODIUM CHLORIDE 0.9% EPI PRN (02:20)
[2020-09-06] MEDS: SODIUM CHLORIDE 0.9% 250ML IRRIG IR SCH ×6 (02:25→20:50)
[2020-09-06] MEDS: ONDANSETRON HCL INJ 2MG/ML 2ML 2 MG/ML VIAL IV PRN ×3 (02:25→20:11)
[2020-09-06] MEDS: ACETAMINOPHEN 1000 MG/100 ML IV PRN ×3 (02:43→23:00)
[2020-09-06] MEDS: SODIUM CHLORIDE 0.9% 1000ML 1,000 ML IV SCH ×2 (05:04→15:11)
[2020-09-06 05:51] LABS: BASOPHILS # (AUTO) 0.1 (0.0-0.1); BASOPHILS % 0.5 % (0.0-1.0); EOSINOPHILS # (AUTO) 0.4 (0.0-0.4); EOSINOPHILS % 1.9 % (0.0-6.0); HEMOGLOBIN 11.3 g/dL (12.0-16.0); LYMPHOCYTES # (AUTO) 1.6 (1.0-3.2); LYMPHOCYTES % 8.9 % (18.0-39.1); MEAN CORPUSCULAR HEMOGLOBIN 30.9 pg (28-32); MEAN CORPUSCULAR HGB CONC 32.3 g/dL (31-35); MEAN CORPUSCULAR VOLUME 95.6 fL (81-99); MONOCYTES # (AUTO) 1.5 (0.2-0.8); MONOCYTES % 8.2 % (4.4-11.3); NEUTROPHILS # (AUTO) 14.5 (2.1-6.9); NEUTROPHILS % 79.9 % (38.7-80.0); PLATELET COUNT 183 x10e3/uL (140-360); RED BLOOD COUNT 3.66 x10e6/uL (3.6-5.1); RED CELL DISTRIBUTION WIDTH 14.9 % (11.7-14.4)
[2020-09-06 06:13] LABS: BLOOD UREA NITROGEN 23 mg/dL (7-26); BUN/CREATININE RATIO 28 (6-25); CARBON DIOXIDE 19 mmol/L (22-29); CHLORIDE 114 mmol/L (98-107); CREATININE, SERUM 0.82 mg/dL (0.57-1.11); EST GLOMERULAR FILTRATION RATE > 60 ML/MIN (60-); GLUCOSE 73 mg/dL (74-118); SODIUM 143 mmol/L (136-145)
[2020-09-06] MEDS ORDERED: BISACODYL 10 MG SUPP PR ONE (11:15)
[2020-09-06] MEDS: BUTORPHANOL TARTRATE INJ 1 MG/ML VIAL IV PRN ×2 (12:52→20:55)
[2020-09-06] MEDS: PANTOPRAZOLE 40 MG 10ML VIAL IV SCH (15:20)
[2020-09-06] MEDS ORDERED: BUTORPHANOL TARTRATE INJ 1 MG/ML VIAL IV PRN (16:00)
[2020-09-06] MEDS ORDERED: PROMETHAZINE 12.5MG/ NACL 0.9% 12.5 MG/50 ML BAG IV ONE (16:00)
--- NOTE | 2020-09-06 18:59 | NUR ---
WALKING ROUNDS PERFORMED, RECEIVED PT LAYING FOWLERS IN BED, RESTING. NO S/SX OF DISTRESS NOTED. RR EVEN AND NON-LABORED. NGT TO LCS. MALAVE TO GRAVITY. LEFT PT LAYING FOWLERS IN BED, BED IN LOW LOCKED POSITION, SIDE RAILS UPX2, CALL LIGHT AND PHONE WITHIN REACH.
[2020-09-06] MEDS: CEFTRIAXONE SOD 1 GM/NS 50 ML 50 ML IV SCH (20:05)
[2020-09-06] MEDS: PROMETHAZINE 12.5MG/ NACL 0.9% 12.5 MG/50 ML BAG IV PRN (20:40)
[2020-09-06] MEDS ORDERED: METOCLOPRAMIDE HCL 10 MG/2ML VIAL IV ONE (20:45)
--- NOTE | 2020-09-06 21:00 | NUR ---
NGT DISCONTINUED BY MD Svetlana ANGEL AT BEDSIDE. ORDERS RECEIVED THAT PT IS TO BE COMPLETELY NPO INCLUDING NO ICE CHIPS.
[2020-09-07] VITALS (9 sets, daily range): BP systolic 155–201; BP diastolic 72–109
[2020-09-07] MEDS: METOCLOPRAMIDE HCL 10 MG/2ML VIAL IV SCH ×4 (00:30→16:58)
[2020-09-07] MEDS: SODIUM CHLORIDE 0.9% 1000ML 1,000 ML IV SCH ×2 (03:06→11:31)
[2020-09-07] MEDS: PROMETHAZINE 12.5MG/ NACL 0.9% 12.5 MG/50 ML BAG IV PRN ×3 (03:48→20:04)
[2020-09-07] MEDS: BUTORPHANOL TARTRATE INJ 1 MG/ML VIAL IV PRN ×3 (03:48→20:01)
[2020-09-07 04:59] LABS: BASOPHILS # (AUTO) 0.1 (0.0-0.1); BASOPHILS % 0.3 % (0.0-1.0); EOSINOPHILS # (AUTO) 0.2 (0.0-0.4); EOSINOPHILS % 0.9 % (0.0-6.0); HEMATOCRIT 35.6 % (34.2-44.1); HEMOGLOBIN 11.2 g/dL (12.0-16.0); LYMPHOCYTES # (AUTO) 1.3 (1.0-3.2); LYMPHOCYTES % 7.6 % (18.0-39.1); MEAN CORPUSCULAR HEMOGLOBIN 29.4 pg (28-32); MEAN CORPUSCULAR HGB CONC 31.5 g/dL (31-35); MEAN CORPUSCULAR VOLUME 93.4 fL (81-99); MONOCYTES # (AUTO) 1.6 (0.2-0.8); MONOCYTES % 9.4 % (4.4-11.3); NEUTROPHILS # (AUTO) 13.4 (2.1-6.9); NEUTROPHILS % 80.8 % (38.7-80.0); PLATELET COUNT 186 x10e3/uL (140-360); RED BLOOD COUNT 3.81 x10e6/uL (3.6-5.1); RED CELL DISTRIBUTION WIDTH 14.9 % (11.7-14.4)
[2020-09-07 05:23] LABS: ALANINE AMINOTRANSFERASE 23 IU/L (0-55); ALBUMIN 2.4 g/dL (3.5-5.0); ALBUMIN/GLOBULIN RATIO 0.6 (0.8-2.0); ALKALINE PHOSPHATASE 65 IU/L (40-150); ANION GAP 14.7 mmol/L (8-16); BLOOD UREA NITROGEN 16 mg/dL (7-26); BUN/CREATININE RATIO 22 (6-25); CALCIUM 8.5 mg/dL (8.4-10.2); CARBON DIOXIDE 16 mmol/L (22-29); CHLORIDE 114 mmol/L (98-107); CREATININE, SERUM 0.72 mg/dL (0.57-1.11); EST GLOMERULAR FILTRATION RATE > 60 ML/MIN (60-); GLUCOSE 78 mg/dL (74-118); POTASSIUM 3.7 mmol/L (3.5-5.1); SODIUM 141 mmol/L (136-145)
[2020-09-07] MEDS ORDERED: BISACODYL 10 MG SUPP PR ONE (08:00)
--- NOTE | 2020-09-07 08:01 | NUR ---
PT C/O PAIN; BLOOD PRESSURE 183/79, HR 122. PT STATES SHE JUST PUSHED HER EPIDURAL BUTTON FOR A DOSE OF MEDICINE.
--- NOTE | 2020-09-07 08:16 | NUR ---
UPON RE-ASSESSMENT, PT STATES SHE IS STILL IN PAIN, UNCHANGED FROM PREVIOUSLY. BP STILL ELEVATED AT 183-91, HR 121. WILL GIVE DOSE OF OFIRMEV. Addendum: 09/07/20 at 0843 by Earlene Davis RN AYANA DIAS
[2020-09-07] MEDS: ACETAMINOPHEN 1000 MG/100 ML IV PRN ×3 (08:22→22:16)
--- NOTE | 2020-09-07 09:00 | NUR ---
DR. ANGEL ARRIVED AT PT'S BEDSIDE. PT'S BLOOD PRESSURE RETAKEN, NOTED AT 191/101 WITH HR AT 122. MD AWARE. STATES HE WILL MAKE DR. BLOOM AWARE.
--- NOTE | 2020-09-07 09:14 | NUR ---
DR. BLOOM ARRIVED AT PT'S BEDSIDE. REMOVED EPIDURAL, TIP INTACT. NEW ORDERS RECEIVED FOR BLOOD PRESSURE.
[2020-09-07] MEDS ORDERED: LABETALOL HCL 5 MG/ML 20ML VIAL IV PRN ×2 (09:30→10:15)
[2020-09-07] MEDS ORDERED: METOPROLOL TARTRATE INJ 1 MG/ML VIAL IV ONE (09:40)
[2020-09-07] MEDS: ONDANSETRON HCL INJ 2MG/ML 2ML 2 MG/ML VIAL IV PRN (09:44)
--- NOTE | 2020-09-07 11:14 | NUR ---
PT BLOOD PRESSURE IMPROVED, 167/85 WITH HEART RATE 95. PT NOW COMPLAINING OF LEFT-SIDED CHEST PAIN RADIATING DOWN HER LEFT ARM. PT DENIES HX OF HTN OR HEART DISEASE. STATES SHE HAD A NORMAL CARDIAC WORKUP BY DR. WRIGHT TWO YEARS AGO PRIOR TO KNEE SURGERY. WILL PAGE DR. ANGEL.
--- NOTE | 2020-09-07 11:22 | NUR ---
DR. ANGEL CALLED BACK, STATES GIVE PT HER SCHEDULED PAIN MEDICINE.
--- NOTE | 2020-09-07 13:20 | NUR ---
risk and insurance consultant visited the pt and daughter, provided pastoral conversation, hope building and prayer , Pt expressed strong miya and hope of healing . Pt appreciated risk and insurance consultant support and prayer . chaplain [facility]
[2020-09-07] MEDS: PANTOPRAZOLE 40 MG 10ML VIAL IV SCH (16:58)
--- NOTE | 2020-09-07 17:20 | NUR ---
dr. agustin at bedside. states pt can start to have ice chips tonight and clear liquids in the AM. also states pt's grande can be discharged. Addendum: 09/07/20 at 6 by Earlene Davis RN MD informed of pt's blood pressure. states pt can have Labetalol at this time.
--- NOTE | 2020-09-07 17:33 | NUR ---
pt's grande discontinued, tip intact, pt tolerated well.
--- NOTE | 2020-09-07 19:00 | NUR ---
Resumed care of patient. Patient awake and resting in bed, no s/s of distress at this time. Bed locked and in lowest position, side rails upx2, alarm on, call light placed within reach. Patient instructed to call for assistance if needed, verbalized understanding. All safety measures in place.
--- NOTE | 2020-09-07 19:38 | NUR ---
Patient voided 200 ml clear yellow urine post Ruiz removal.
[2020-09-07] MEDS: CEFTRIAXONE SOD 1 GM/NS 50 ML 50 ML IV SCH (19:51)
[2020-09-08] VITALS (8 sets, daily range): BP systolic 153–196; BP diastolic 67–95
[2020-09-08] MEDS: METOCLOPRAMIDE HCL 10 MG/2ML VIAL IV SCH ×4 (00:48→17:14)
[2020-09-08] MEDS: BUTORPHANOL TARTRATE INJ 1 MG/ML VIAL IV PRN (00:54)
[2020-09-08] MEDS: METOPROLOL TARTRATE INJ 1 MG/ML VIAL IV PRN ×3 (02:03→15:21)
[2020-09-08] MEDS: SODIUM CHLORIDE 0.9% 1000ML 1,000 ML IV SCH ×3 (02:22→16:34)
[2020-09-08] MEDS: ONDANSETRON HCL INJ 2MG/ML 2ML 2 MG/ML VIAL IV PRN ×2 (04:44→11:19)
[2020-09-08] MEDS ORDERED: ACETAMINOPHEN 1000 MG/100 ML 100 ML IV ONE ×2 (04:56→21:58)
[2020-09-08] MEDS: ACETAMINOPHEN 1000 MG/100 ML IV PRN ×3 (04:57→21:53)
[2020-09-08 05:02] LABS: BASOPHILS # (AUTO) 0.1 (0.0-0.1); BASOPHILS % 0.6 % (0.0-1.0); EOSINOPHILS # (AUTO) 0.8 (0.0-0.4); EOSINOPHILS % 5.1 % (0.0-6.0); HEMATOCRIT 36.9 % (34.2-44.1); HEMOGLOBIN 11.9 g/dL (12.0-16.0); LYMPHOCYTES # (AUTO) 1.7 (1.0-3.2); LYMPHOCYTES % 10.9 % (18.0-39.1); MEAN CORPUSCULAR HEMOGLOBIN 29.5 pg (28-32); MEAN CORPUSCULAR HGB CONC 32.2 g/dL (31-35); MEAN CORPUSCULAR VOLUME 91.6 fL (81-99); MONOCYTES # (AUTO) 1.7 (0.2-0.8); MONOCYTES % 10.8 % (4.4-11.3); NEUTROPHILS # (AUTO) 11.5 (2.1-6.9); NEUTROPHILS % 71.9 % (38.7-80.0); PLATELET COUNT 243 x10e3/uL (140-360); RED BLOOD COUNT 4.03 x10e6/uL (3.6-5.1); RED CELL DISTRIBUTION WIDTH 14.8 % (11.7-14.4)
[2020-09-08 05:25] LABS: ALANINE AMINOTRANSFERASE 19 IU/L (0-55); ALBUMIN 2.2 g/dL (3.5-5.0); ALBUMIN/GLOBULIN RATIO 0.6 (0.8-2.0); ALKALINE PHOSPHATASE 68 IU/L (40-150); ANION GAP 14.8 mmol/L (8-16); BLOOD UREA NITROGEN 13 mg/dL (7-26); BUN/CREATININE RATIO 18 (6-25); CALCIUM 8.7 mg/dL (8.4-10.2); CARBON DIOXIDE 19 mmol/L (22-29); CHLORIDE 110 mmol/L (98-107); CREATININE, SERUM 0.71 mg/dL (0.57-1.11); EST GLOMERULAR FILTRATION RATE > 60 ML/MIN (60-); GLUCOSE 93 mg/dL (74-118); POTASSIUM 3.8 mmol/L (3.5-5.1); SODIUM 140 mmol/L (136-145)
--- NOTE | 2020-09-08 07:00 | NUR ---
RECEIVED PATIENT RESTING IN BED NO S/S OF DISTRESS. BED LOW, WHEELS LOCKED, SIDE RAILS X2. CALL LIGHT IN REACH WILL CONTINUE TO MONITOR PATIENT.
[2020-09-08] MEDS ORDERED: BISACODYL 10 MG SUPP PR ONE (08:00)
--- NOTE | 2020-09-08 10:56 | NUR ---
Nutrition Screen Note RD Recommendation for Physician: Advance diet as tolerated. Plan of Care: RD following, monitoring for tolerance and adequacy Nutrition reason for involvement: LOS Primary Diagnose(s): hiatal hernia Ht:69 in Wt:250.80lbs BMI:37 kg/m2 IBW:145lbs RD Assessment:(09/08/2020) Initial encounter with patient. Pt is reporting a poor appetite. Pt with C/O nausea. Pt denies any difficulty chewing or swallowing. Pt states that she is 69" pt denies any known food allergies. Current Diet: Clear liquid Malnutrition Evaluation (09/08/2020) The patient does not meet criteria for a specified degree of malnutrition at this time. Will re-evaluate at follow-up as appropriate. Diet Education Needs Assessment: Diet education not indicated. Diet Adequacy: Not meeting calorie needs, Not meeting protein needs Tolerance: Tolerating PO Nutrition Care Level: Tommie Ng RD,LD,CNSC
[2020-09-08] MEDS ORDERED: KETOROLAC TROMETHAMINE 30 MG/ML VIAL IM PRN (11:15)
[2020-09-08] MEDS: PANTOPRAZOLE 40 MG 10ML VIAL IV SCH (15:21)
[2020-09-08] MEDS: CEFTRIAXONE SOD 1 GM/NS 50 ML 50 ML IV SCH (20:56)
[2020-09-08] MEDS: PROMETHAZINE 12.5MG/ NACL 0.9% 12.5 MG/50 ML BAG IV PRN (21:33)
[2020-09-09] VITALS (8 sets, daily range): BP systolic 133–183; BP diastolic 66–90
[2020-09-09] MEDS: METOCLOPRAMIDE HCL 10 MG/2ML VIAL IV SCH ×5 (01:01→22:59)
[2020-09-09] MEDS: METOPROLOL TARTRATE INJ 1 MG/ML VIAL IV PRN ×2 (01:10→08:08)
[2020-09-09] MEDS: SODIUM CHLORIDE 0.9% 1000ML 1,000 ML IV SCH ×2 (02:34→12:11)
[2020-09-09] MEDS: ONDANSETRON HCL INJ 2MG/ML 2ML 2 MG/ML VIAL IV PRN (04:54)
--- NOTE | 2020-09-09 07:00 | NUR ---
RECEIVED PATIENT RESTING IN BED NO S/S OF DISTRESS. BED LOW, WHEELS LOCKED, SIDE RAILS X2. CALL LIGHT IN REACH WILL CONTINUE TO MONITOR PATIENT.
--- NOTE | 2020-09-09 14:46 | NUR ---
Spoke to Dr. Maida Smiley. Ok to resume IV tylenol. New orders implemented.
[2020-09-09] MEDS: ACETAMINOPHEN 1000 MG/100 ML IV PRN ×2 (15:12→22:36)
[2020-09-09] MEDS: PANTOPRAZOLE 40 MG 10ML VIAL IV SCH (15:13)
[2020-09-09] MEDS: CEFTRIAXONE SOD 1 GM/NS 50 ML 50 ML IV SCH (20:26)
--- NOTE | 2020-09-09 20:30 | NUR ---
patient has refused to wear teletypesetter monitor. patient has been educated on its use and still continues to refuse to wear it. patient states she has been in the hospital for 8 days and does not have any cardiac issues.
[2020-09-10 00:01] VITALS: BP 130/65
[2020-09-10] MEDS: METOCLOPRAMIDE HCL 10 MG/2ML VIAL IV SCH ×2 (05:28→14:50)
--- NOTE | 2020-09-10 06:50 | NUR ---
Bedside shift report received. Patient sitting at the bedside. Denies pain at this time. Respiration even and unlabored without SOB. S/P surgical sites to abdomen with rashmi intact, bruising around the area of abdomen noted, no s/s of infection, Call light in reach.
[2020-09-10 08:06] VITALS: BP 146/74
[2020-09-10 08:30] VITALS: BP 146/74
[2020-09-10 12:04] VITALS: BP 149/81
[2020-09-10] MEDS: PANTOPRAZOLE 40 MG 10ML VIAL IV SCH (15:53)
[2020-09-10 16:13] VITALS: BP 143/68
--- NOTE | 2020-09-10 18:20 | NUR ---
Discharge education provided with discharge prescription. PIV to left AC removed with catheter tip intact, no bleeding noted. Verbalized understanding regarding follow-up appointment with Dr. Smiley. Transported via wheelchair to private vehicle with all personal belongings taken by the daughter.
== END 2020-09-10 18:20 | disposition home or self-care (01) | DRG 328 ==
LOC: OR 07:17 → PACU V 13:59 → MED/SURG 16:27
PROVIDERS: ADMIT Surgery; ATTEND Surgery
PROC: 0DQ70ZZ Repair Stomach, Pylorus, Open Approach (ICD-10-PCS; 2020-09-03)
PROC: 3E0T3BZ Introduction of Anesthetic Agent into Peripheral Nerves and Plexi, Percutaneous Approach (ICD-10-PCS; 2020-09-03)
PROC: 0BQT0ZZ Repair Diaphragm, Open Approach (ICD-10-PCS; principal; 2020-09-03 10:00)
PROC: 0DV40ZZ Restriction of Esophagogastric Junction, Open Approach (ICD-10-PCS; 2020-09-03 10:00)
DX: K44.9 Diaphragmatic hernia without obstruction or gangrene (principal); Z20.828 Contact with and (suspected) exposure to other viral communicable diseases; K31.84 Gastroparesis
CPT/HCPCS: 36415; 71045; 71046; 80048; 80053; 85025; 93005; 93041; 96361; J0330; J0595; J0690; J0696; J1100; J1885; J2001; J2250; J2405; J2550; J2765; J7030; U0002

== ENCOUNTER → 2020-11-08 | Outpatient (CLI) | payer MEDICARE | LOC: MRI 08:42 | PROVIDERS: ATTEND Surgery | DX: M54.5 Low back pain (principal); R26.2 Difficulty in walking, not elsewhere classified | CPT/HCPCS: 72148 ==

== ENCOUNTER 2020-12-20 05:31 | Observation (INO) | payer MEDICARE ==
[2020-12-17 12:01] LABS: BASOPHILS # (AUTO) 0.1 (0.0-0.1); BASOPHILS % 1.3 % (0.0-1.0); EOSINOPHILS # (AUTO) 0.3 (0.0-0.4); EOSINOPHILS % 3.7 % (0.0-6.0); HEMATOCRIT 43.1 % (34.2-44.1); HEMOGLOBIN 13.6 g/dL (12.0-16.0); LYMPHOCYTES # (AUTO) 2.5 (1.0-3.2); LYMPHOCYTES % 31.1 % (18.0-39.1); MEAN CORPUSCULAR HGB CONC 31.6 g/dL (31-35); MEAN CORPUSCULAR VOLUME 91.9 fL (81-99); MONOCYTES # (AUTO) 0.9 (0.2-0.8); NEUTROPHILS # (AUTO) 4.2 (2.1-6.9); NEUTROPHILS % 52.6 % (38.7-80.0); PLATELET COUNT 254 x10e3/uL (140-360); RED BLOOD COUNT 4.69 x10e6/uL (3.6-5.1); RED CELL DISTRIBUTION WIDTH 14.1 % (11.7-14.4)
[2020-12-17 12:30] LABS: INR 1.07; PROTHROMBIN TIME 14.6 seconds (11.9-14.5)
[2020-12-17 12:31] LABS: PARTIAL THROMBOPLASTIN TIME 30.4 seconds (23.8-35.5)
[2020-12-17 12:37] LABS: ANION GAP 11.4 mmol/L (8-16); BLOOD UREA NITROGEN 17 mg/dL (7-26); BUN/CREATININE RATIO 20 (6-25); CARBON DIOXIDE 24 mmol/L (22-29); CHLORIDE 109 mmol/L (98-107); CREATININE, SERUM 0.86 mg/dL (0.57-1.11); EST GLOMERULAR FILTRATION RATE > 60 ML/MIN (60-); GLUCOSE 105 mg/dL (74-118); POTASSIUM 4.4 mmol/L (3.5-5.1); SODIUM 140 mmol/L (136-145)
[~2020-12-20] VITALS: Ht 175.3 cm; Wt 101.6 kg
[~2020-12-20 05:31] MED LIST changes: +CYCLOBENZAPRINE5 MG PO
[2020-12-20] MEDS ORDERED: CEFAZOLIN SOD 1 GM/NS 50ML 100 ML IV ONE (06:03)
[2020-12-20] MEDS ORDERED: ACETAMINOPHEN 1000 MG/100 ML 100 ML IV ONE ×2 (06:26→06:36)
[2020-12-20] MEDS ORDERED: LIDOCAINE HCL (LTA) 4 ML SOLN ONE ×2 (06:27→06:36)
[2020-12-20] MEDS ORDERED: IBUPROFEN 800MG/ 200ML 200 ML IV ONE (06:36)
[2020-12-20] MEDS ORDERED: THROMBIN FOR SOLN 5,000 UNIT VIAL ONE (06:46)
[2020-12-20] MEDS ORDERED: BUPIVACAINE 0.5%/EPI 30 ML SDV INJ ONE (06:46)
[2020-12-20] MEDS ORDERED: VANCOMYCIN HCL 1 GM VIAL ONE (06:46)
[2020-12-20] MEDS ORDERED: SCOPOLAMINE 1.5 MG PATCH ONE (06:58)
[2020-12-20] MEDS ORDERED: CARISOPRODOL 350 MG TAB PO PRN (09:15)
[2020-12-20] MEDS ORDERED: CEPACOL SORE THROAT LOZENGES PO PRN (09:15)
[2020-12-20] MEDS ORDERED: ACETAMINOPHEN 325 MG TAB PO PRN (09:15)
[2020-12-20] MEDS ORDERED: HYDROMORPHONE 2MG/ML 2 MG/ML ML IV PRN (09:15)
[2020-12-20] MEDS ORDERED: OXYCODONE/ACETAMINOPHEN 5-325 1 EACH TABLET PO PRN (09:15)
[2020-12-20] MEDS ORDERED: MORPHINE SULFATE 5 MG/ML VIAL IM PRN (09:15)
[2020-12-20] MEDS ORDERED: IBUPROFEN 400 MG TAB PO SCH (09:15)
[2020-12-20] MEDS ORDERED: ONDANSETRON HCL INJ 2MG/ML 2ML 2 MG/ML VIAL IV PRN (09:15)
[2020-12-20] MEDS ORDERED: PROMETHAZINE HCL (IM) 25 MG/ML VIAL IM PRN (09:15)
[2020-12-20] MEDS ORDERED: MAGNESIUM/ALUMINUM/SIMETHICONE 30 ML UDC PO PRN (09:15)
[2020-12-20] MEDS ORDERED: ZOLPIDEM TARTRATE 5 MG TAB PO PRN (09:15)
[2020-12-20] MEDS ORDERED: HYDROCODON-ACE1 EA12 PO (09:16)
[2020-12-20] MEDS ORDERED: LABETALOL HCL 20 ML ONE (09:42)
[2020-12-20] MEDS ORDERED: KETOROLAC TROMETHAMINE 30 MG/ML VIAL IV PRN (11:30)
[2020-12-20] MEDS ORDERED: KETOROLAC TROME10 MG PO (11:30)
[2020-12-20] MEDS ORDERED: LIDOCAINE HCL 2% LOCAL INJ 5 ML SDV VIAL INJ ONE (12:44)
[2020-12-20] MEDS ORDERED: ONDANSETRON HCL INJ 2MG/ML 2ML 2 MG/ML VIAL ONE (12:44)
[2020-12-20] MEDS ORDERED: PROPOFOL IV EMULSION 10 MG/ML 20 ML VIAL ONE (12:44)
[2020-12-20] MEDS ORDERED: GLYCOPYRROLATE INJ 0.2 MG/ML VIAL ONE (12:44)
[2020-12-20] MEDS ORDERED: SEVOFLURANE INHAL SOLN 250 ML PEN BTL ONE (12:44)
[2020-12-20] MEDS ORDERED: ESMOLOL HCL 100MG/10ML 10 MG/ML VIAL ONE (12:44)
[2020-12-20] MEDS ORDERED: DEXAMETHASONE SOD PHOS INJ 4 MG/ML VIAL ONE (12:44)
[2020-12-20] MEDS ORDERED: NEOSTIGMINE 1 MG/ML 10ML VIAL ONE (12:44)
[2020-12-20] MEDS ORDERED: FENTANYL CITRATE/PF 100MCG/2 ML INJ ONE (13:48)
[2020-12-20] MEDS ORDERED: MIDAZOLAM HCL 2 MG/2 ML VIAL ONE (13:48)
[2020-12-20 13:56] VITALS: BP 158/94
[2020-12-20 13:57] VITALS: BP 158/94
[2020-12-20 13:59] VITALS: BP 158/94
[2020-12-20] MEDS: LACTATED RINGER'S 1,000 ML IV SCH ×2 (14:58→22:45)
[2020-12-20 16:12] VITALS: BP 154/73
[2020-12-20] MEDS: CYCLOBENZAPRINE HCL 10 MG TAB PO SCH (16:29)
[2020-12-20] MEDS: CEFAZOLIN SOD 1 GM/NS 50ML 50 ML IV SCH ×2 (16:29→23:45)
[2020-12-20 20:00] VITALS: BP 132/74
[2020-12-20 20:25] VITALS: BP 132/74
[2020-12-21] VITALS: BP 143/60
[2020-12-21 04:00] VITALS: BP 132/70
[2020-12-21] MEDS: LACTATED RINGER'S 1,000 ML IV SCH (07:25)
[2020-12-21 08:10] VITALS: BP 138/57
[2020-12-21] MEDS: CEFAZOLIN SOD 1 GM/NS 50ML 50 ML IV SCH (08:28)
[2020-12-21] MEDS: CYCLOBENZAPRINE HCL 10 MG TAB PO SCH (08:29)
[2020-12-21 08:30] VITALS: BP 138/57
[2020-12-21 09:02] VITALS: BP 123/45
[2020-12-21 12:22] VITALS: BP 143/66
== END 2020-12-21 12:33 | disposition home or self-care (01) ==
LOC: OR 05:31 → PACU V 09:33 → MED/SURG 13:33
PROVIDERS: ADMIT Neurological Surgery; ATTEND Neurological Surgery
DX: M51.16 Intervertebral disc disorders with radiculopathy, lumbar region (principal); Z20.822 Contact with and (suspected) exposure to COVID-19; Z01.818 Encounter for other preprocedural examination
CPT/HCPCS: 36415; 63047; 71046; 72020; 80048; 85025; 85610; 85730; 86850; 86900; 88304; 93005; 93041; 96361; G0378 ×2; J0131; J0690 ×2; J1100; J1885; J2001; J2405; J2704; J2710; J3370; J3490; J7121; U0002

== ENCOUNTER → 2021-03-28 | Outpatient (CLI) | payer MEDICARE ==
[~2021-03-28] MED LIST changes: +DIATRIZOATE MEGL/DIATRIZOA SOD 30 ML BTL PO ONE; +HYDROCODON-ACE1 EA12 PO; +IOPAMIDOL 370 MG/ML 200 ML INFUS..BTL INJ ONE; +SODIUM CHLORIDE 0.9% 50ML 50 ML ONE
== END ==
LOC: CT 16:11
PROVIDERS: ATTEND Surgery
DX: R10.13 Epigastric pain (principal)
CPT/HCPCS: 74160; Q9967

== ENCOUNTER → 2021-05-10 | Outpatient (CLI) | payer MEDICARE ==
[~2021-05-10] MED LIST changes: -DIATRIZOATE MEGL/DIATRIZOA SOD 30 ML BTL PO ONE
[2021-05-10 15:50] LABS: CREATININE, SERUM 0.96 mg/dL (0.57-1.11)
== END ==
LOC: CT 14:46
PROVIDERS: ATTEND Surgery
DX: R06.02 Shortness of breath (principal); R10.13 Epigastric pain
CPT/HCPCS: 36415; 71260; 74160; 82565; 84520; Q9967

== ENCOUNTER → 2021-06-21 | Outpatient (CLI) | payer MEDICARE ==
[~2021-06-21] MED LIST changes: -IOPAMIDOL 370 MG/ML 200 ML INFUS..BTL INJ ONE; -SODIUM CHLORIDE 0.9% 50ML 50 ML ONE
== END ==
LOC: LAB 08:13
PROVIDERS: ATTEND Internal Medicine Gastroenterology
DX: Z01.812 Encounter for preprocedural laboratory examination (principal); Z20.822 Contact with and (suspected) exposure to COVID-19
CPT/HCPCS: U0002

== ENCOUNTER → 2021-07-29 | Outpatient (CLI) | payer MEDICARE ==
[~2021-07-29] MED LIST changes: +IOPAMIDOL 370 MG/ML 200 ML INFUS..BTL INJ ONE; +SODIUM CHLORIDE 0.9% 50ML 50 ML ONE
[2021-07-29 08:41] LABS: CREATININE, SERUM 0.84 mg/dL (0.57-1.11)
== END ==
LOC: NM 07:28
PROVIDERS: ATTEND Internal Medicine Gastroenterology
DX: K86.2 Cyst of pancreas (principal)
CPT/HCPCS: 36415; 74178; 78264; 82565; 84520; A9541; Q9967

== ENCOUNTER → 2021-10-03 | Outpatient (CLI) | payer MEDICARE ==
[~2021-10-03] MED LIST changes: -IOPAMIDOL 370 MG/ML 200 ML INFUS..BTL INJ ONE; -SODIUM CHLORIDE 0.9% 50ML 50 ML ONE
== END ==
LOC: MRI 08:24
PROVIDERS: ATTEND Student in an Organized Health Care Education/Training Program
DX: M51.36 Other intervertebral disc degeneration, lumbar region (principal); S39.012D Strain of muscle, fascia and tendon of lower back, subsequent encounter
CPT/HCPCS: 72148

== ENCOUNTER → 2021-10-23 | Outpatient (CLI) | payer MEDICARE | LOC: DX 08:29 | PROVIDERS: ATTEND Nurse Practitioner Family | DX: Z01.818 Encounter for other preprocedural examination (principal); Z98.890 Other specified postprocedural states; K21.9 Gastro-esophageal reflux disease without esophagitis; Z20.822 Contact with and (suspected) exposure to COVID-19; Z87.19 Personal history of other diseases of the digestive system | CPT/HCPCS: 74220; U0002 ==

== ENCOUNTER → 2021-12-09 | Outpatient (CLI) | payer MEDICARE | LOC: LAB 08:35 | PROVIDERS: ATTEND Surgery | DX: Z20.822 Contact with and (suspected) exposure to COVID-19 (principal) | CPT/HCPCS: U0002 ==

== ENCOUNTER 2022-02-24 18:13 | Emergency (ER) | payer MEDICARE ==
[~2022-02-24] VITALS: Ht 175.3 cm; Wt 101.6 kg
[2022-02-24] MEDS ORDERED: Morphine 4mg Syringe 4 MG/ML INJ IV PRN (18:45)
[2022-02-24] MEDS ORDERED: ONDANSETRON HCL INJ 2MG/ML 2ML 2 MG/ML VIAL IV PRN (18:45)
[2022-02-24] MEDS ORDERED: HYDRALAZINE HCL 20 MG/ML VIAL IV PRN (18:45)
[2022-02-24] MEDS ORDERED: SODIUM CHLORIDE 0.9% 1000ML 1,000 ML IV ONE (19:00)
[2022-02-24] MEDS ORDERED: SODIUM CHLORIDE 0.9% 1000ML 1,000 ML ONE (19:00)
[2022-02-24] MEDS ORDERED: HYDRALAZINE HCL 20 MG/ML VIAL ONE (19:00)
[2022-02-24 19:11] LABS: BASOPHILS % 0.6 % (0.0-1.0); HEMATOCRIT 46.7 % (34.2-44.1); HEMOGLOBIN 15.4 g/dL (12.0-16.0); LYMPHOCYTES # (AUTO) 1.1 (1.0-3.2); LYMPHOCYTES % 15.4 % (18.0-39.1); MEAN CORPUSCULAR HEMOGLOBIN 30.2 pg (28-32); MEAN CORPUSCULAR VOLUME 91.6 fL (81-99); MONOCYTES # (AUTO) 0.3 (0.2-0.8); MONOCYTES % 4.2 % (4.4-11.3); NEUTROPHILS # (AUTO) 5.7 (2.1-6.9); NEUTROPHILS % 79.5 % (38.7-80.0); PLATELET COUNT 228 x10e3/uL (140-360); RED CELL DISTRIBUTION WIDTH 13.2 % (11.7-14.4)
[2022-02-24 19:23] LABS: INR 0.98; PROTHROMBIN TIME 13.9 seconds (11.9-14.5)
[2022-02-24] MEDS ORDERED: METOCLOPRAMIDE HCL 10 MG/2ML VIAL IV ONE (19:30)
[2022-02-24] MEDS ORDERED: METOCLOPRAMIDE HCL 10 MG/2ML VIAL ONE (19:31)
[2022-02-24 19:33] LABS: ALBUMIN 3.6 g/dL (3.5-5.0); ALBUMIN/GLOBULIN RATIO 0.8 (0.8-2.0); CALCIUM 8.9 mg/dL (8.4-10.2); CREATININE, SERUM 0.84 mg/dL (0.57-1.11)
[2022-02-24] MEDS ORDERED: NICARDIPINE 20MG/200ML PREMIX 200 ML IV STA (19:51)
[2022-02-24] MEDS ORDERED: LEVETIRACETAM 500MG/5ML VIAL 500 MG in SODIUM CHLORIDE 0.9% 100 ML 100 ML IV SCH (20:00)
[2022-02-24] MEDS ORDERED: LEVETIRACETAM 500 MG/5 ML VIAL IV ONE (20:22)
[2022-02-24] MEDS ORDERED: SODIUM CHLORIDE 0.9% 100 ML ONE (20:23)
[2022-02-24] MEDS ORDERED: IOPAMIDOL 370 MG/ML 100 ML INFUS..BTL INJ ONE (21:28)
[2022-02-24] MEDS ORDERED: ACETAMINOPHEN 325 MG TAB PO STA (21:29)
[2022-02-24 22:33] VITALS: BP 127/62
== END 2022-02-24 22:35 | disposition other institution (70) ==
LOC: ER 18:41
DX: I60.9 Nontraumatic subarachnoid hemorrhage, unspecified (principal); I16.1 Hypertensive emergency; R94.8 Abnormal results of function studies of other organs and systems; R10.13 Epigastric pain; U07.1 COVID-19; I10 Essential (primary) hypertension
CPT/HCPCS: 36415; 70450; 74177; 80053; 85025; 85610; 99284; J0360; J1953; J2405; J2765; J7030; J7050; Q9967; U0002

== ENCOUNTER 2023-01-14 16:03 | Inpatient (IN) | payer MEDICARE ==
[~2023-01-14] VITALS: Ht 175.3 cm; Wt 101.6 kg
[~2023-01-14 16:03] MED LIST changes: +DEXAMETHASONE SOD PHOS INJ 4 MG/ML SDV ONE; +FAMOTIDINE 20 MG/2 ML VIAL IV ONE; +GLYCOPYRROLATE INJ 0.2 MG/ML VIAL ONE; +LIDOCAINE HCL 2% LOCAL INJ 5 ML SDV VIAL INJ ONE; +METOCLOPRAMIDE HCL 10 MG/2ML VIAL ONE; +ONDANSETRON HCL INJ 2MG/ML 2ML 2 MG/ML VIAL ONE; +POVIDONE IODINE 0.05% 0.05 % ML PO ONE; +PROPOFOL IV EMULSION 10 MG/ML 20 ML VIAL ONE
[2023-01-14] MEDS ORDERED: SODIUM CHLORIDE FLUSH 10 ML SYR IV PRN (16:15)
[2023-01-14] MEDS ORDERED: ONDANSETRON HCL INJ 2MG/ML 2ML 2 MG/ML VIAL IV STA (16:15)
[2023-01-14 17:16] LABS: BASOPHILS # (AUTO) 0.1 (0.0-0.1); BASOPHILS % 1.2 % (0.0-1.0); EOSINOPHILS # (AUTO) 0.2 (0.0-0.4); EOSINOPHILS % 2.1 % (0.0-6.0); HEMATOCRIT 44.8 % (34.2-44.1); HEMOGLOBIN 14.6 g/dL (12.0-16.0); LYMPHOCYTES # (AUTO) 2.7 (1.0-3.2); LYMPHOCYTES % 32.5 % (18.0-39.1); MEAN CORPUSCULAR HGB CONC 32.6 g/dL (31-35); MONOCYTES # (AUTO) 0.9 (0.2-0.8); NEUTROPHILS # (AUTO) 4.5 (2.1-6.9); PLATELET COUNT 222 x10e3/uL (140-360); RED BLOOD COUNT 4.87 x10e6/uL (3.6-5.1); RED CELL DISTRIBUTION WIDTH 13.7 % (11.7-14.4)
[2023-01-14 17:36] LABS: ALANINE AMINOTRANSFERASE 29 IU/L (0-55); ALBUMIN 3.9 g/dL (3.5-5.0); ALBUMIN/GLOBULIN RATIO 1.1 (0.8-2.0); ALKALINE PHOSPHATASE 69 IU/L (40-150); ANION GAP 15.9 mmol/L (8-16); BLOOD UREA NITROGEN 25 mg/dL (7-26); BUN/CREATININE RATIO 27 (6-25); CALCIUM 9.3 mg/dL (8.4-10.2); CARBON DIOXIDE 19 mmol/L (22-29); CHLORIDE 108 mmol/L (98-107); CREATININE, SERUM 0.93 mg/dL (0.57-1.11); GLUCOSE 93 mg/dL (74-118); POTASSIUM 3.9 mmol/L (3.5-5.1); SODIUM 139 mmol/L (136-145)
[2023-01-14] MEDS ORDERED: IOPAMIDOL 370 MG/ML 100 ML INFUS..BTL INJ ONE (18:15)
[2023-01-14] MEDS ORDERED: Morphine 4mg INJECTION 4 MG/ML INJ IV PRN (18:15)
[2023-01-14] MEDS: SODIUM CHLORIDE 0.9% 1000ML 1,000 ML IV SCH (20:20)
[2023-01-14 20:50] VITALS: BP 186/89
[2023-01-14] MEDS: PROMETHAZINE 12.5MG/ NACL 0.9% 12.5 MG/50 ML BAG IV PRN (21:57)
[2023-01-14] MEDS ORDERED: DIPHENHYDRAMINE HCL INJ 50 MG/ML VIAL IV PRN (22:00)
[2023-01-15] VITALS (7 sets, daily range): BP systolic 127–189; BP diastolic 62–87
[2023-01-15] MEDS: SODIUM CHLORIDE 0.9% 1000ML 1,000 ML IV SCH ×3 (02:15→18:15)
[2023-01-15 05:31] LABS: BASOPHILS # (AUTO) 0.1 (0.0-0.1); BASOPHILS % 0.9 % (0.0-1.0); EOSINOPHILS # (AUTO) 0.1 (0.0-0.4); EOSINOPHILS % 1.8 % (0.0-6.0); HEMATOCRIT 40.2 % (34.2-44.1); HEMOGLOBIN 12.7 g/dL (12.0-16.0); LYMPHOCYTES # (AUTO) 2.2 (1.0-3.2); MEAN CORPUSCULAR HEMOGLOBIN 29.7 pg (28-32); MEAN CORPUSCULAR HGB CONC 31.6 g/dL (31-35); MEAN CORPUSCULAR VOLUME 93.9 fL (81-99); MONOCYTES # (AUTO) 0.7 (0.2-0.8); MONOCYTES % 8.7 % (4.4-11.3); NEUTROPHILS # (AUTO) 4.5 (2.1-6.9); NEUTROPHILS % 59.3 % (38.7-80.0); PLATELET COUNT 182 x10e3/uL (140-360); RED BLOOD COUNT 4.28 x10e6/uL (3.6-5.1); RED CELL DISTRIBUTION WIDTH 13.7 % (11.7-14.4)
[2023-01-15 05:45] LABS: ALBUMIN 3.1 g/dL (3.5-5.0); ANION GAP 12.3 mmol/L (8-16); CALCIUM 8.5 mg/dL (8.4-10.2); CREATININE, SERUM 0.77 mg/dL (0.57-1.11); POTASSIUM 4.3 mmol/L (3.5-5.1)
[2023-01-15] MEDS: CIPROFLOXACIN 500 MG TAB PO SCH ×2 (14:31→21:31)
[2023-01-15] MEDS: CLARITHROMYCIN 500 MG TAB PO SCH ×2 (16:14→21:31)
[2023-01-15] MEDS: MAGNESIUM/ALUMINUM/SIMETHICONE 30 ML UDC PO SCH ×2 (16:16→21:31)
[2023-01-15] MEDS: PROMETHAZINE 12.5MG/ NACL 0.9% 12.5 MG/50 ML BAG IV PRN (17:46)
[2023-01-15] MEDS: ACETAMINOPHEN 325 MG TAB PO PRN (23:21)
[2023-01-16] VITALS (8 sets, daily range): BP systolic 140–160; BP diastolic 63–73
[2023-01-16] MEDS: SODIUM CHLORIDE 0.9% 1000ML 1,000 ML IV SCH ×3 (02:15→19:33)
[2023-01-16] MEDS: MAGNESIUM/ALUMINUM/SIMETHICONE 30 ML UDC PO SCH ×4 (08:04→20:54)
[2023-01-16] MEDS: CIPROFLOXACIN 500 MG TAB PO SCH ×2 (08:04→16:10)
[2023-01-16] MEDS: CLARITHROMYCIN 500 MG TAB PO SCH ×2 (08:04→16:10)
[2023-01-16] MEDS: ONDANSETRON HCL INJ 2MG/ML 2ML 2 MG/ML VIAL IV PRN (10:46)
[2023-01-16] MEDS: ACETAMINOPHEN 325 MG TAB PO PRN (11:55)
[2023-01-16] MEDS ORDERED: ACETAMINOPHEN 1000 MG/100 ML IV PRN (18:30)
[2023-01-17] VITALS (7 sets, daily range): BP systolic 135–165; BP diastolic 73–95
[2023-01-17] MEDS: PROMETHAZINE 12.5MG/ NACL 0.9% 12.5 MG/50 ML BAG IV PRN (02:17)
[2023-01-17] MEDS: SODIUM CHLORIDE 0.9% 1000ML 1,000 ML IV SCH ×3 (02:22→17:40)
[2023-01-17] MEDS: MAGNESIUM/ALUMINUM/SIMETHICONE 30 ML UDC PO SCH ×4 (08:51→20:52)
[2023-01-17] MEDS: CIPROFLOXACIN 500 MG TAB PO SCH ×2 (08:51→16:44)
[2023-01-17] MEDS: CLARITHROMYCIN 500 MG TAB PO SCH ×2 (08:51→16:44)
[2023-01-17] MEDS: ONDANSETRON HCL INJ 2MG/ML 2ML 2 MG/ML VIAL IV PRN (08:52)
[2023-01-18] VITALS: BP 145/74
[2023-01-18] MEDS: SODIUM CHLORIDE 0.9% 1000ML 1,000 ML IV SCH ×2 (02:15→10:15)
[2023-01-18] MEDS: ONDANSETRON HCL INJ 2MG/ML 2ML 2 MG/ML VIAL IV PRN (03:40)
[2023-01-18 04:00] VITALS: BP 151/71
[2023-01-18] MEDS: ACETAMINOPHEN 325 MG TAB PO PRN (07:17)
[2023-01-18 08:00] VITALS: BP 176/70
[2023-01-18 08:39] VITALS: BP 176/70
[2023-01-18] MEDS: CLARITHROMYCIN 500 MG TAB PO SCH ×2 (09:09→16:30)
[2023-01-18] MEDS: MAGNESIUM/ALUMINUM/SIMETHICONE 30 ML UDC PO SCH ×3 (09:09→16:30)
[2023-01-18] MEDS: CIPROFLOXACIN 500 MG TAB PO SCH ×2 (09:09→16:30)
[2023-01-18 12:50] VITALS: BP 173/78
[2023-01-18 16:53] VITALS: BP 150/93
== END 2023-01-18 18:00 | disposition home or self-care (01) | DRG 391 ==
LOC: ER 16:16 → ERHOLD 18:14 → MED/SURG 20:40 → OBSVTOIN 01-17 10:50
PROVIDERS: ADMIT Surgery; ATTEND Surgery
PROC: 0DB78ZX Excision of Stomach, Pylorus, Via Natural or Artificial Opening Endoscopic, Diagnostic (ICD-10-PCS; principal; 2023-01-17)
DX: K22.5 Diverticulum of esophagus, acquired (principal); K29.01 Acute gastritis with bleeding; K86.3 Pseudocyst of pancreas; Z96.659 Presence of unspecified artificial knee joint; R07.9 Chest pain, unspecified; Z88.2 Allergy status to sulfonamides; Z20.822 Contact with and (suspected) exposure to COVID-19
CPT/HCPCS: 0223U; 36415; 43239; 71260; 74177; 80053; 83880; 84484; 85025; 88304; 88305; 88312; 88342; 93005; 94760; 99284; G0378; J1100; J1200; J2001; J2270; J2405; J2550; J2765; J7030; Q9967

== ENCOUNTER → 2023-04-07 | Outpatient (CLI) | payer MEDICARE ==
[~2023-04-07] MED LIST changes: -DEXAMETHASONE SOD PHOS INJ 4 MG/ML SDV ONE; -FAMOTIDINE 20 MG/2 ML VIAL IV ONE; +FUROSEMIDE40 MG PO; -GLYCOPYRROLATE INJ 0.2 MG/ML VIAL ONE; -LIDOCAINE HCL 2% LOCAL INJ 5 ML SDV VIAL INJ ONE; -METOCLOPRAMIDE HCL 10 MG/2ML VIAL ONE; -ONDANSETRON HCL INJ 2MG/ML 2ML 2 MG/ML VIAL ONE; -POVIDONE IODINE 0.05% 0.05 % ML PO ONE; -PROPOFOL IV EMULSION 10 MG/ML 20 ML VIAL ONE; +PROTONIX20 MG PO; +TYLENOL325 MG PO
== END ==
LOC: RAD 09:46
PROVIDERS: ATTEND Surgery
DX: M79.605 Pain in left leg (principal); M79.604 Pain in right leg
CPT/HCPCS: 93925; 93970

== ENCOUNTER → 2023-04-09 | Day surgery (SDC) | payer MEDICARE ==
[2023-04-07 09:50] LABS: BASOPHILS # (AUTO) 0.1 (0.0-0.1); BASOPHILS % 1.5 % (0.0-1.0); EOSINOPHILS # (AUTO) 0.3 (0.0-0.4); EOSINOPHILS % 3.5 % (0.0-6.0); HEMATOCRIT 42.2 % (34.2-44.1); HEMOGLOBIN 13.5 g/dL (12.0-16.0); LYMPHOCYTES # (AUTO) 2.4 (1.0-3.2); LYMPHOCYTES % 32.4 % (18.0-39.1); MEAN CORPUSCULAR HEMOGLOBIN 30.2 pg (28-32); MEAN CORPUSCULAR VOLUME 94.4 fL (81-99); MONOCYTES # (AUTO) 0.9 (0.2-0.8); MONOCYTES % 12.2 % (4.4-11.3); NEUTROPHILS # (AUTO) 3.8 (2.1-6.9); NEUTROPHILS % 50.3 % (38.7-80.0); PLATELET COUNT 209 x10e3/uL (140-360); RED BLOOD COUNT 4.47 x10e6/uL (3.6-5.1); RED CELL DISTRIBUTION WIDTH 13.6 % (11.7-14.4)
[~2023-04-09] MED LIST changes: +IOPAMIDOL 200 MG/ML 20 ML VIAL IT ONE; +LACTATED RINGER'S 1,000 ML ONE; +LIDOCAINE HCL 1% 30ML-PF VIAL ONE; +LIDOCAINE HCL 2% LOCAL INJ 5 ML SDV VIAL INJ ONE; +MIDAZOLAM HCL 2 MG/2 ML VIAL ONE; +ONDANSETRON HCL INJ 2MG/ML 2ML 2 MG/ML VIAL ONE; +POVIDONE IODINE 0.05% 0.05 % ML PO ONE; +PROPOFOL IV EMULSION 10 MG/ML 20 ML VIAL ONE; +TRIAMCINOLONE ACET 40 MG/ML VIAL ONE
[2023-04-09 06:50] VITALS: BP 125/66; PULSE 80; RESP 18; O2SAT 98
== END | disposition home or self-care (01) ==
LOC: OR 07:54
PROVIDERS: ATTEND Physical Medicine & Rehabilitation Pain Medicine
DX: M46.1 Sacroiliitis, not elsewhere classified (principal); M48.061 Spinal stenosis, lumbar region without neurogenic claudication; M47.816 Spondylosis without myelopathy or radiculopathy, lumbar region; I10 Essential (primary) hypertension; Z88.8 Allergy status to other drugs, medicaments and biological substances; Z01.812 Encounter for preprocedural laboratory examination; Z79.1 Long term (current) use of non-steroidal anti-inflammatories (NSAID); Z79.899 Other long term (current) drug therapy
CPT/HCPCS: 36415; 85025; G0260; J2001 ×2; J2250; J2405; J2704; J3301; J7121; Q9967; 77003

== ENCOUNTER → 2023-04-24 | Outpatient (RCR) | payer MEDICARE ==
[~2023-04-24] MED LIST changes: -IOPAMIDOL 200 MG/ML 20 ML VIAL IT ONE; -LACTATED RINGER'S 1,000 ML ONE; -LIDOCAINE HCL 1% 30ML-PF VIAL ONE; -LIDOCAINE HCL 2% LOCAL INJ 5 ML SDV VIAL INJ ONE; -MIDAZOLAM HCL 2 MG/2 ML VIAL ONE; -ONDANSETRON HCL INJ 2MG/ML 2ML 2 MG/ML VIAL ONE; -POVIDONE IODINE 0.05% 0.05 % ML PO ONE; -PROPOFOL IV EMULSION 10 MG/ML 20 ML VIAL ONE; -TRIAMCINOLONE ACET 40 MG/ML VIAL ONE
== END ==
LOC: PT 04-03 07:43
PROVIDERS: ATTEND Physical Medicine & Rehabilitation Pain Medicine
DX: M47.816 Spondylosis without myelopathy or radiculopathy, lumbar region (principal)

== ENCOUNTER → 2024-06-03 | Day surgery (SDC) | payer MEDICARE ==
[2024-05-31 11:36] LABS: BASOPHILS % 0.3 % (0.0-1.0); EOSINOPHILS % 0.2 % (0.0-6.0); HEMOGLOBIN 13.9 g/dL (12.0-16.0); LYMPHOCYTES # (AUTO) 1.2 (1.0-3.2); MEAN CORPUSCULAR HGB CONC 32.3 g/dL (31-35); MEAN CORPUSCULAR VOLUME 98.9 fL (81-99); MONOCYTES # (AUTO) 1.2 (0.2-0.8); MONOCYTES % 10.2 % (4.4-11.3); NEUTROPHILS # (AUTO) 8.8 (2.1-6.9); NEUTROPHILS % 77.9 % (38.7-80.0); PLATELET COUNT 218 x10e3/uL (140-360); RED BLOOD COUNT 4.35 x10e6/uL (3.6-5.1)
[~2024-06-03] MED LIST changes: +DRAMAMINE50 MG PO; +KETOROLAC TROME10 MG; +LIDOCAINE HCL 2% LOCAL INJ 5 ML SDV VIAL INJ ONE; +ONDANSETRON ODT4 MG PO; +PREDNISONE20 MG PO; +PROPOFOL IV EMULSION 10 MG/ML 20 ML VIAL ONE; +ROBAXIN100 MG/1 M
[2024-06-03] MEDS: LACTATED RINGER'S 1,000 ML ONE (06:53)
[2024-06-03 09:00] VITALS: BP 162/99; PULSE 72; RESP 15; TEMP 98.1; O2SAT 98
== END | disposition home or self-care (01) ==
LOC: OR 06:31
PROVIDERS: ATTEND Surgery
DX: K29.50 Unspecified chronic gastritis without bleeding (principal); K20.90 Esophagitis, unspecified without bleeding; Z98.890 Other specified postprocedural states; K31.89 Other diseases of stomach and duodenum; K21.9 Gastro-esophageal reflux disease without esophagitis; G89.29 Other chronic pain; Z88.5 Allergy status to narcotic agent; Z88.8 Allergy status to other drugs, medicaments and biological substances; Z01.810 Encounter for preprocedural cardiovascular examination; Z01.812 Encounter for preprocedural laboratory examination; Z01.818 Encounter for other preprocedural examination
CPT/HCPCS: 36415; 43239; 71046; 85025; 88305; 88313; 88342; 93005; J2001; J2704; J7121

== ENCOUNTER → 2024-07-01 | Outpatient (REF) | payer MEDICARE ==
[~2024-07-01] MED LIST changes: -LIDOCAINE HCL 2% LOCAL INJ 5 ML SDV VIAL INJ ONE; -PROPOFOL IV EMULSION 10 MG/ML 20 ML VIAL ONE
== END ==
LOC: RAD 13:13
PROVIDERS: ATTEND Surgery
DX: R10.10 Upper abdominal pain, unspecified (principal); M54.6 Pain in thoracic spine; M54.50 Low back pain, unspecified
CPT/HCPCS: 72070; 72110

== ENCOUNTER → 2024-07-18 | Outpatient (REF) | payer MEDICARE ==
[~2024-07-18] MED LIST changes: +DIATRIZOATE MEGL/DIATRIZOA SOD 30 ML BTL PO ONE; +IOPAMIDOL 370 MG/ML 100 ML INFUS..BTL INJ ONE
[2024-07-18 16:13] LABS: CREATININE, SERUM 0.95 mg/dL (0.57-1.11)
[2024-07-18 16:51] VITALS: PULSE 105; RESP 20; O2SAT 99
== END ==
LOC: CT 15:15
PROVIDERS: ATTEND Surgery
DX: M54.9 Dorsalgia, unspecified (principal); R10.10 Upper abdominal pain, unspecified
CPT/HCPCS: 36415; 74177; 82565; 82948; 84520; 93005; 94799; Q9963; Q9967

== ENCOUNTER → 2024-10-04 | Outpatient (REF) | payer MEDICARE ==
[~2024-10-04] MED LIST changes: -DIATRIZOATE MEGL/DIATRIZOA SOD 30 ML BTL PO ONE; -IOPAMIDOL 370 MG/ML 100 ML INFUS..BTL INJ ONE
== END ==
LOC: RAD 10:20
PROVIDERS: ATTEND Physical Medicine & Rehabilitation
DX: M54.17 Radiculopathy, lumbosacral region (principal)
CPT/HCPCS: 72110; 72170